=== PATIENT | male | born 1975 | race Hispanic/Latino ===

== ENCOUNTER 2017-01-17 08:40 | Inpatient (IN) | payer BC, OTHER ==
[2017-01-17 08:44] VITALS: BMI 36.2
--- NOTE | 2017-01-17 09:35 | ED PDOC ---
Arrival/HPI <Ramos Kingsley - Last Filed: 01/17/17 18:35> <Octavio Hernandez - Last Filed: 01/19/17 09:28> - General Chief Complaint: Shortness Of Breath Time Seen by Provider: 01/17/17 08:48 - History of Present Illness Narrative History of Present Illness (Text): 41 year old obese with a history of anxiety and depression who presents with dyspnea of 2 hours duration after taking coming out of the shower. He denies chest pain, nausea, diaphoresis, cough, or fever. He admits to increased stress at work and at home, Cocaine use 2 days ago, increased use of his prescribed Klonopin, difficulty sleeping, and non-compliance with his PMD recommedations in regards to his blood pressure monitoring. 01/17/17 09:40 (Ramos Kingsley) Past Medical History - Provider Review Nursing Documentation Reviewed: Yes - Infectious Disease Hx of Infectious Diseases: None - Cardiac Hx Hypertension: Yes (no treatment) - Psychiatric Hx Anxiety: Yes Hx Depression: Yes Hx Substance Use: No <Ramos Kingsley - Last Filed: 01/17/17 18:35> Family/Social History Smoking Status: Current Some Days Smoker Hx Alcohol Use: Yes Hx Substance Use: No <Ramos Kingsley - Last Filed: 01/17/17 18:35> - Physician Review Nursing Documentation Reviewed: Yes Family/Social History: Unknown Family HX <Octavio Hernandez - Last Filed: 01/19/17 09:28> Narrative Family History (Free Text): Father had 2 heart valves replaced 01/17/17 09:47 (Ramos Kingsley) Allergies/Home Meds <Ramos Kingsley - Last Filed: 01/17/17 18:35> <Octavio Hernandez - Last Filed: 01/19/17 09:28> Allergies/Adverse Reactions: Allergies No Known Allergies Allergy (Verified 01/17/17 08:44) Home Medications: Home Meds Medication Instructions Recorded Confirmed Dextroamphetamine/Amphetamine 10 mg PO DAILY 01/17/17 01/17/17 [Adderall 10 mg Tablet] Escitalopram [Lexapro] 20 mg PO DAILY 01/17/17 01/17/17 clonazePAM [Klonopin] 1 mg PO BID 01/17/17 01/17/17 Review of Systems - Review of Systems Constitutional: Weight Change Eyes: Normal. absent: Photophobia ENT: absent: Tinnitus Respiratory: SOB. absent: Cough, Sputum, Wheezing Cardiovascular: absent: Chest Pain, Palpitations, Edema, Calf Pain Gastrointestinal: Normal. absent: Vomiting, Appetite Changes Genitourinary Male: absent: Dysuria, Hematuria Musculoskeletal: absent: Arthralgias, Back Pain Skin: Normal. absent: Rash Neurological: Normal. absent: Headache, Dizziness Endocrine: Normal. absent: Polyuria, Polydipsia Hemo/Lymphatic: absent: Easy Bleeding, Easy Bruising <Sancho,Vadimkatie - Last Filed: 01/17/17 18:35> Physical Exam Temperature: Afebrile Blood Pressure: Hypertensive Pulse: Tachycardic Respiratory Rate: Normal Appearance: Positive for: Non-Toxic Pain Distress: None Mental Status: Positive for: Alert and Oriented X 3 - Systems Exam Head: Present: Atraumatic, Normocephalic Pupils: Present: PERRL Extroacular Muscles: Present: EOMI Conjunctiva: Present: Normal Mouth: Present: Dry Neck: No: JVD, Bruit Respiratory/Chest: Present: Clear to Auscultation, Good Air Exchange Cardiovascular: Present: Normal S1, S2, Tachycardic Abdomen: Present: Normal Bowel Sounds. No: Tenderness, Distention Upper Extremity: Present: Normal Inspection. No: Cyanosis, Edema Lower Extremity: Present: Normal Inspection. No: Edema, CALF TENDERNESS Neurological: Present: CN II-XII Intact, Speech Normal, Motor Func Grossly Intact Psychiatric: Present: Alert, Oriented x 3, Normal Insight <Sancho,Ramos - Last Filed: 01/17/17 18:35> Vital Signs Temp Pulse Resp BP Pulse Ox 01/17/17 17:01 86 150/86 01/17/17 14:47 88 162/108 H 01/17/17 14:00 89 01/17/17 13:34 89 16 98 01/17/17 13:32 89 98 H 140/81 01/17/17 12:15 78 18 150/100 H 95 01/17/17 10:37 82 16 152/108 H 94 L 01/17/17 09:05 18 97 01/17/17 08:41 98.7 F 103 H 20 195/115 H 95 Medical Decision Making <Ramos Kingsley - Last Filed: 01/17/17 18:35> - Lab Interpretations I have reviewed the lab results: Yes - RAD Interpretation Touch Up Painter: Radiologist - EKG Interpretation Interpreted by ED Physician: Yes Type: 12 lead EKG <Octavio Hernandez - Last Filed: 01/19/17 09:28> ED Course and Treatment: 41 year old obese male with a past medical history of anxiety, depression, and general non-compliance who presents with 2 hours of shortness of breath and epigastric discomfort. In the ED he was found to have a blood pressure of 195/ 115 and HR of 103. EKG showed sinus tachycardia, Q-waves in leads III and aVF, poor R-wave progression in the precordial leads, with moderate voltage criteria for LVH (based on lead aVL). Portable Chest X-ray: Nonspecific elevation right diaphragm. No acute infiltrate, pleural effusion or pneumothorax identified. Laboratory tests, including, but not limited to Pro-NT-BNP, troponin I, and D- dimer were non-diagnostic. 01/17/17 11:30 Patient was discussed with Dr. Wong, who agreed to admit the patient for observation. Urine drug screen and serum alcohol also ordered. (Ramos Kingsley) 01/17/17 In agreement with resident note, which includes further HPI details. Patient was seen and evaluated with resident, came up with plan and treatment together. 01/17/17 11:00 Sinus Tachy at [address] elevations, LVH, Q wave in inferior waves, no previous to compare 01/17/17 11:03 Patient with EKG changes. Will consider ACS and place on tele observation. (Octavio Hernandez) - Lab Interpretations Lab Results: 01/18/17 06:10 01/18/17 06:10 Lab Results 01/18/17 06:10: Lactate Dehydrogenase 659, Total Creatine Kinase 135, Troponin I 0.02 D 01/18/17 06:10: Sodium 143, Potassium 4.1, Chloride 106, Carbon Dioxide 27, Anion Gap 14, BUN 14, Creatinine 1.0, Est GFR ( Amer) > 60, Est GFR (Non- Af Amer) > 60, Random Glucose 110, Calcium 8.5, Total Bilirubin 1.2, AST 58, ALT 76 H, Alkaline Phosphatase 76, Total Protein 7.2, Albumin 4.1, Globulin 3.0 , Albumin/Globulin Ratio 1.4 01/18/17 06:10: WBC 6.9 D, RBC 5.06, Hgb 15.4, Hct 44.9, MCV 88.7, MCH 30.4, MCHC 34.3, RDW 13.8, Plt Count 161, MPV 11.5 H, Gran % 58.5, Lymph % (Auto) 30.0 , [place]reys % (Auto) 7.2 H, Eos % (Auto) 3.6, Baso % (Auto) 0.7, Gran # 4.04, Lymph # 2.1, [place] # 0.5, Eos # 0.3, Baso # 0.05 01/17/17 18:20: Lactate Dehydrogenase 459, Total Creatine Kinase 219, Troponin I 0.03 01/17/17 11:58: Urine Opiates Screen Negative, Urine Methadone Screen Negative, Ur Barbiturates Screen Negative, Ur Phencyclidine Scrn Negative, Ur Amphetamines Screen Negative, U Benzodiazepines Scrn Negative, U Oth Cocaine Metabols Positive H, U Cannabinoids Screen Positive H 01/17/17 11:35: Alcohol, Quantitative < 10 01/17/17 09:56: Triglycerides 157, Cholesterol 190, LDL Cholesterol Direct 137 H , HDL Cholesterol 47 01/17/17 09:56: Hepatitis A IgM Ab Negative, Hep Bs Antigen Negative, Hep B Core IgM Ab Negative, Hepatitis C Antibody Negative 01/17/17 09:56: Sodium 144, Potassium 4.4, Chloride 108 H, Carbon Dioxide 24, Anion Gap 16, BUN 16, Creatinine 1.0, Est GFR ( Amer) > 60, Est GFR (Non- Af Amer) > 60, Random Glucose 117 H, Calcium 9.2, Magnesium 2.2, Total Bilirubin 0.6, AST 61 H, ALT 87 H, Alkaline Phosphatase 100, Lactate Dehydrogenase 570, Total Creatine Kinase 198, Troponin I 0.03, NT-Pro-B Natriuret Pep 44.4, Total Protein 7.0, Albumin 4.4, Globulin 2.6, Albumin/ Globulin Ratio 1.7 01/17/17 09:56: PT 10.8, INR 1.00, APTT 32.2 H, D-Dimer, Quantitative 0.19 01/17/17 09:56: WBC 8.8, RBC 4.93, Hgb 15.1, Hct 43.0, MCV 87.2, MCH 30.6, MCHC 35.1, RDW 13.5, Plt Count 178, MPV 11.4 H, Gran % 66.1, Lymph % (Auto) 23.7, Humphreys % (Auto) 8.5 H, Eos % (Auto) 1.5, Baso % (Auto) 0.2, Gran # 5.79, Lymph # 2.1, Humphreys # 0.7 H, Eos # 0.1, Baso # 0.02 - RAD Interpretation Radiology Orders: 01/17/17 09:36 CHEST PORTABLE [RAD] Stat - Medication Orders Current Medication Orders: Atorvastatin Calcium (Lipitor) 20 mg PO DIN [facility] Last Admin: 01/18/17 17:11 Dose: 20 mg Clonidine HCl (Catapres) 0.1 mg PO BID PRN PRN Reason: Systolic Blood Pressure Last Admin: 01/18/17 17:11 Dose: 0.1 mg MAR Pulse and Blood Pressure Document 01/18/17 17:11 BIR (Rec: 01/18/17 17:12 BIR [id number]) Pulse Pulse Rate (60-90) 79 Blood Pressure Blood Pressure (100/60-150/90) 141/103 Escitalopram Oxalate (Lexapro) 20 mg PO DAILY [facility] Last Admin: 01/18/17 09:09 Dose: 20 mg Folic Acid (Folic Acid) 1 mg PO DAILY [facility] Heparin Sodium (Porcine) (Heparin) 5,000 units SC Q8 CHRISTOPHER PRN Reason: Protocol Last Admin: 01/19/17 06:15 Dose: 5,000 units Subcutaneous Administrations Document 01/19/17 06:15 NW (Rec: 01/19/17 06:15 NW [id number]) Charges for Administration # of Subcutaneous Administrations 1 Hydrochlorothiazide (Hydrodiuril) 25 mg PO DAILY CHRISTOPHER Lisinopril (Zestril) 20 mg PO DAILY [facility] Lorazepam (Ativan) 1 mg IVP Q3 PRN; Protocol PRN Reason: Agitation Last Admin: 01/18/17 06:34 Dose: 1 mg IVP Administration Document 01/18/17 06:34 SWE (Rec: 01/18/17 06:34 SWE [id number]) Charges for Administration # of IVP Administrations 1 Behavioural Document 01/18/17 06:34 SWE (Rec: 01/18/17 06:34 SWE [id number]) Maintenance Maintenance Dose Yes Nonmedicinal Nonmedicinal Interventions See nurse's notes Behavior Behavior for Medication: Anxiety Lorazepam (Ativan) 0.5 mg IVP Q4 CHRISTOPHER PRN Reason: Protocol Last Admin: 01/19/17 06:12 Dose: Not Given Non-Admin Reason: Patient Asleep Multivitamins/Minerals (Therapeutic-M Tab) 1 tab PO 0800 CHRISTOPHER Pantoprazole Sodium (Protonix Ec Tab) 40 mg PO DAILY CHRISTOPHER Last Admin: 01/18/17 09:10 Dose: 40 mg Thiamine HCl (Vitamin B1 Tab) 100 mg PO DAILY CHRISTOPHER Discontinued Medications Hydrochlorothiazide (Hydrodiuril) 25 mg PO STAT STA Stop: 01/18/17 12:04 Last Admin: 01/18/17 13:37 Dose: 25 mg Multivitamins/Vitamin C 10 ml/Thiamine HCl 100 mg/ Folic Acid 1 mg/ Sodium Chloride 1,011.2 mls @ 100 mls/hr IV .Q10H7M ONE Stop: 01/17/17 22:49 Last Admin: 01/17/17 13:46 Dose: 100 mls/hr eMAR Start Stop Document 01/17/17 13:46 DIMITRY (Rec: 01/17/17 13:47 [id number]) Intravenous Solution Start Date 01/17/17 Start Time 13:46 End Date 01/18/17 Lisinopril (Zestril) 20 mg PO STAT STA Stop: 01/18/17 12:03 Last Admin: 01/18/17 13:37 Dose: 20 mg MAR Pulse and Blood Pressure Document 01/18/17 13:37 GABRIEL (Rec: 01/18/17 13:38 GABRIEL [id number]) Pulse Pulse Rate (60-90) 72 Blood Pressure Blood Pressure (100/60-150/90) 148/88 Lorazepam (Ativan) 1 mg IVP Q4 CHRISTOPHER PRN Reason: Protocol Last Admin: 01/18/17 13:32 Dose: 1 mg IVP Administration Document 01/18/17 13:32 GABRIEL (Rec: 01/18/17 13:32 [id number] Charges for Administration # of IVP Administrations 1 Behavioural Document 01/18/17 13:32 [facility] (Rec: 01/18/17 13:32 [id number][facility] Maintenance Maintenance Dose Yes Nonmedicinal Nonmedicinal Interventions Redirect Re-Assess: Reassess Psych Meds Document 01/18/17 14:02 [facility] (Rec: 01/18/17 17:09 [id number] Reassess Psych Med Effective Pantoprazole Sodium (Protonix Ec Tab) 40 mg PO 0600,1600 CHRISTOPHER Pneumococcal Polyvalent Vaccine (Pneumovax 23 Vaccine) 0.5 ml IM .ONCE ONE Stop: 01/17/17 18:13 <Ramos Kingsley - Last Filed: 01/17/17 18:35> - PA / CLAM DREDGER / Resident Statement MD/ has reviewed & agrees with the documentation as recorded. MD/DO has examined the patient and agrees with the treatment plan. - Scribe Statement The provider has reviewed the documentation as recorded by the Scribe <Octavio Hernandez - Last Filed: 01/19/17 09:28> - Scribe Statement Roberta Lorenzo Provider Scribe Attestation: All medical record entries made by the Scribe were at my direction and personally dictated by me. I have reviewed the chart and agree that the record accurately reflects my personal performance of the history, physical exam, medical decision making, and the department course for this patient. I have also personally directed, reviewed, and agree with the discharge instructions and disposition. (Octavio Hernandez) Disposition/Present on Arrival - Present on Arrival Any Indicators Present on Arrival: No History of DVT/PE: No History of Uncontrolled Diabetes: No Urinary Catheter: No History of Decub. Ulcer: No History Surgical Site Infection Following: None - Disposition Have Diagnosis and Disposition been Completed?: Yes <Ramos Kingsley - Last Filed: 01/17/17 18:35> - Disposition Disposition Time: 11:02 Patient Plan: Admission <Octavio Hernandez - Last Filed: 01/19/17 09:28> - Disposition Diagnosis: Shortness of breath, Hypertension, EKG abnormalities Disposition: HOSPITALIZED Patient Problems: Current Active Problems Problem Status Onset EKG abnormalities Acute Hypertension Acute Shortness of breath Acute Condition: FAIR
[2017-01-17 10:02] LABS: BASO # 0.02 K/mm3 (0.0-2.0); BASO % 0.2 % (0.0-3.0); EOS # 0.1 (0.0-0.7); EOS % 1.5 % (1.5-5.0); GRAN # 5.79 (1.4-6.5); GRAN % 66.1 % (50.0-68.0); LYMPH # 2.1 (1.2-3.4); LYMPH % 23.7 % (22.0-35.0); MEAN CELL VOLUME 87.2 fl (80.0-105.0); MEAN CORPUSCULAR HEMOGLOBIN 30.6 pg (25.0-35.0); MEAN CORPUSCULAR HGB CONC 35.1 g/dl (31.0-37.0); MEAN PLATELET VOLUME 11.4 fl (7.0-11.0); MONO # 0.7 (0.1-0.6); MONO % 8.5 % (1.0-6.0); RED CELL DISTRIBUTION WIDTH 13.5 % (11.5-14.5); WHITE BLOOD COUNT 8.8 10^3/ul (4.5-11.0)
--- NOTE | 2017-01-17 10:04 | RAD ---
HISTORY: sob COMPARISON: No prior. FINDINGS: LUNGS: There is some elevation the right hemidiaphragm however there is no infiltrate identified bilaterally. PLEURA: No significant pleural effusion identified, no pneumothorax apparent. CARDIOVASCULAR: Normal. OSSEOUS STRUCTURES: No significant abnormalities. VISUALIZED UPPER ABDOMEN: Normal. OTHER FINDINGS: None. IMPRESSION: Nonspecific elevation right diaphragm. No acute infiltrate, pleural effusion or pneumothorax identified.
[2017-01-17 10:13] LABS: ALB/GLOB RATIO 1.7 (1.1-1.8); ALKALINE PHOSPHATASE 100 U/L (38-126); ALT/SGPT 87 U/L (7-56); AST/SGOT 61 U/L (17-59); BILIRUBIN,TOTAL 0.6 mg/dL (0.2-1.3); BLOOD UREA NITROGEN 16 mg/dL (7-21); CALCIUM 9.2 mg/dL (8.4-10.5); CARBON DIOXIDE 24 mmol/L (21-33); CHLORIDE 108 mmol/L (98-107); GFR AFRICAN-AMERICAN > 60; GLUCOSE,RANDOM 117 mg/dL (70-110); MAGNESIUM 2.2 mg/dL (1.7-2.2); POTASSIUM 4.4 mmol/L (3.6-5.0); SODIUM 144 mmol/L (132-148)
[2017-01-17 10:14] LABS: PARTIAL THROMBOPLASTIN TIME 32.2 Seconds (23.7-30.8)
[2017-01-17 10:25] LABS: TROPONIN I 0.03 ng/mL
[2017-01-17 10:38] LABS: D DIMER 0.19 mg/L FEU (0-0.50)
--- NOTE | 2017-01-17 11:35 | CARD ---
APPROVED REPORT EKG Measurement Heart [id number] [id number] <Conclusion> Sinus tachycardia Moderate voltage criteria for LVH, may be normal variant Cannot rule out Inferior infarct, age undetermined Abnormal ECG
[2017-01-17] MEDS ORDERED: Multivitamin (MVI) 10 ML, Thiamine 100 MG, Folic Acid 1 MG in Sodium Chloride 0.9% 1,00... IV ONE (12:43)
--- NOTE | 2017-01-17 13:18 | CP.PCM.HP ---
<Hasmukh Morgan - Last Filed: 01/17/17 21:47> History of Present Illness - History of Present Illness History of Present Illness: This is a 41 year old male with a past medical history of anxiety, depression, and panic attacks who comes into the the emergency department complaining of shortness of breath for approximately two months. The patient reports he's noticed this for awhile, however today he woke up to get ready for work and something just didn't feel right and he decided to come into the emergency department. The patient in conjunction with the shortness of breath has new onset fatigue when climbing up the stairs for the last couple of days. The patient also reports swelling of the lower extremities bilaterally that's been coming and going over the past couple of weeks. The patient denies chest pain, lightheadedness, dizziness, constipation, diarrhea, abdominal pain, headaches, syncopal episodes, dysuria or any other complaints. PMD: Dr. Smith ([place], [place]) Psychiatrist: Dr. Brock ( [place]) PMHx: Anxiety, depression, ?HTN Medications: Lexapro, Aderall, Klonipin Surghx: Denies Allergies: NKDA Socialhx: Current alcohol drinker (suspected alcoholic) and current cocaine abuse (Two days ago last time). Denies smoking history. Denies any other illicit drug use. Present on Admission - Present on Admission Any Indicators Present on Admission: No Review of Systems - Constitutional Constitutional: As Per HPI - EENT Eyes: As Per HPI Ears: As Per HPI Nose/Mouth/Throat: As Per HPI - Cardiovascular Cardiovascular: As Per HPI - Respiratory Respiratory: As Per HPI. absent: Wheezing - Gastrointestinal Gastrointestinal: As Per HPI - Genitourinary Genitourinary: As Per HPI - Integumentary Integumentary: As Per HPI - Neurological Neurological: As Per HPI - Psychiatric Psychiatric: As Per HPI - Endocrine Endocrine: As Per HPI - Hematologic/Lymphatic Hematologic: As Per HPI Past Patient History - Infectious Disease Hx of Infectious Diseases: None - Past Social History Smoking Status: Current Some Days Smoker - CARDIAC Hx Hypertension: Yes (no treatment) - PSYCHIATRIC Hx Anxiety: Yes Hx Depression: Yes Hx Substance Use: No Meds Allergies/Adverse Reactions: Allergies Allergy/AdvReac Type Severity Reaction Status Date / Time No Known Allergies Allergy Verified 01/17/17 08:44 Physical Exam - Head Exam Head Exam: ATRAUMATIC, NORMAL INSPECTION, NORMOCEPHALIC - Eye Exam Eye Exam: EOMI, Normal appearance, PERRL. absent: Periorbital tenderness Pupil Exam: NORMAL ACCOMODATION, PERRL. absent: Irregular - ENT Exam ENT Exam: Mucous Membranes Moist - Neck Exam Neck exam: Positive for: Normal Inspection. Negative for: Lymphadenopathy, Thyromegaly - Respiratory Exam Respiratory Exam: Clear to Auscultation Bilateral, NORMAL BREATHING PATTERN. absent: Accessory Muscle Use, Chest Wall Tenderness, Respiratory Distress - Cardiovascular Exam Cardiovascular Exam: REGULAR RHYTHM, RRR, +S1, +S2. absent: Gallop, JVD, Rubs - GI/Abdominal Exam GI & Abdominal Exam: Normal Bowel Sounds, Soft. absent: Diminished Bowel Sounds , Tenderness - Back Exam Back exam: NORMAL INSPECTION. absent: CVA tenderness (L), CVA tenderness (R), paraspinal tenderness - Neurological Exam Neurological exam: Alert, CN II-XII Intact, Normal Gait, Oriented x3 - Psychiatric Exam Psychiatric exam: Normal Affect, Normal Mood - Skin Skin Exam: Dry, Intact, Normal Color Results - Vital Signs Recent Vital Signs: Last Vital Signs Temp 98.7 F 01/17/17 08:41 Pulse 78 01/17/17 12:15 Resp 18 01/17/17 12:15 BP 150/100 H 01/17/17 12:15 Pulse Ox 95 01/17/17 12:15 - Labs Result Diagrams: 01/17/17 09:56 01/17/17 09:56 Labs: Laboratory Results - last 24 hr 01/17/17 01/17/17 11:35 11:58 Urine Opiates Screen Negative Urine Methadone Screen Negative Ur Barbiturates Screen Negative Ur Phencyclidine Scrn Negative Ur Amphetamines Screen Negative U Benzodiazepines Scrn Negative U Oth Cocaine Metabols Positive H U Cannabinoids Screen Positive H Alcohol, Quantitative < 10 Assessment & Plan - Assessment and Plan (Free Text) Assessment: This is a 41 year old male with a past medical history of anxiety, depression, panic attacks and hypertension who presents with shortness of breath (x 2months) . Plan: 1. Shortness of breath r/o ACS -EKG showed sinus tachycardia, Q-waves in leads III and aVF, poor R-wave progression in the precordial leads, with moderate voltage criteria for LVH ( based on lead aVL). In the ED he was found to have a blood pressure of 195/115 and HR of 103. -Troponin:.04. Order Troponins. Trend. -Pro-BNP 44.4. -Cardio consult ordered. Will f/u with recs tomorrow A.M. -ECHO. Will f/u with recs tomorrow A.M. 2. Etoh abuse/withdrawal -Patient admits to drinking a few can of beers recently, however could be minimizing alcohol intake. -CIWA protocols. -Banana bag. Start Ativan 1 mg Q3PRN and Ativan 1mg Q4SCH. Will monitor closely. 3.Anxiety/panic attacks -Dr. Jade consulted. Will f/u with rec's tomorrow. 4.Cocaine abuse -Counseled patient on cessation of use. Patient seems receptive to change. -Will monitor closely. GI ppx -Protonix DVT ppx -Heparin <Renita Wong - Last Filed: 01/19/17 07:54> Results - Vital Signs Recent Vital Signs: Last Vital Signs Temp 98 F 01/19/17 07:49 Pulse 75 01/19/17 07:49 Resp 20 01/19/17 07:49 BP 135/93 H 01/19/17 07:49 Pulse Ox 97 01/19/17 07:49 - Labs Result Diagrams: 01/19/17 06:10 01/19/17 06:10 Labs: Laboratory Results - last 24 hr 01/19/17 01/19/17 01/19/17 06:10 06:10 06:10 WBC 6.7 RBC 4.90 Hgb 14.8 Hct 43.3 MCV 88.4 MCH 30.2 MCHC 34.2 RDW 13.5 Plt Count 155 MPV 11.2 H Gran % 62.1 Lymph % (Auto) 28.1 [place] % (Auto) 7.0 H Eos % (Auto) 2.4 Baso % (Auto) 0.4 Gran # 4.14 Lymph # 1.9 [place] # 0.5 Eos # 0.2 Baso # 0.03 Sodium 139 Potassium 3.9 Chloride 102 Carbon Dioxide 28 Anion Gap 13 BUN 15 Creatinine 1.0 Est GFR ( Amer) > 60 Est GFR (Non-Af Amer) > 60 Random Glucose 109 Calcium 9.0 Phosphorus 4.0 Magnesium 2.3 H Total Bilirubin 1.2 AST 53 ALT 77 H Alkaline Phosphatase 71 Total Protein 7.0 Albumin 4.1 Globulin 2.8 Albumin/Globulin Ratio 1.5 Triglycerides 237 H Cholesterol 193 LDL Cholesterol Direct 133 H HDL Cholesterol 39 TSH 3rd Generation 1.87 Attending/Attestation - Attestation I have personally seen and examined this patient.: Yes I have fully participated in the care of the patient.: Yes I have reviewed all pertinent clinical information: Yes Notes (Text): 01/17/17 41 year old male with past medical history of anxiety and depression who presented with complaint of chest pain and shortness of breath. Will admit to telemetry unit to rule out ACS. Serial cardiac enzymes and echocardiogram are ordered. Cardiology evaluation is requested. Continue with banana bag and ativan for possible ETOH withdrawal symptoms. Psychiatry evaluation is requested for anxiety and panic attacks. He was counselled on risks of continued substance abuse. is also at bedside and questions were answered. Renita Wong MD Hospitalist.
[2017-01-17] MEDS ORDERED: Pantoprazole 40 mg EC Tab PO SCH (16:00)
[2017-01-17 17:01] LABS: CHOLESTEROL 190 mg/dL (130-200)
[2017-01-17] MEDS ORDERED: Pneumococcal 23-Valent Vaccine IM ONE (18:12)
[2017-01-17 19:00] LABS: TROPONIN I 0.03 ng/mL
[2017-01-18 06:33] LABS: BASO # 0.05 K/mm3 (0.0-2.0); BASO % 0.7 % (0.0-3.0); EOS # 0.3 (0.0-0.7); EOS % 3.6 % (1.5-5.0); GRAN # 4.04 (1.4-6.5); GRAN % 58.5 % (50.0-68.0); HEMATOCRIT 44.9 % (42.0-52.0); LYMPH # 2.1 (1.2-3.4); MEAN CELL VOLUME 88.7 fl (80.0-105.0); MEAN CORPUSCULAR HEMOGLOBIN 30.4 pg (25.0-35.0); MEAN CORPUSCULAR HGB CONC 34.3 g/dl (31.0-37.0); MEAN PLATELET VOLUME 11.5 fl (7.0-11.0); MONO # 0.5 (0.1-0.6); MONO % 7.2 % (1.0-6.0); RED CELL DISTRIBUTION WIDTH 13.8 % (11.5-14.5); WHITE BLOOD COUNT 6.9 10^3/ul (4.5-11.0)
[2017-01-18 06:59] LABS: ALB/GLOB RATIO 1.4 (1.1-1.8); ALKALINE PHOSPHATASE 76 U/L (38-126); ALT/SGPT 76 U/L (7-56); AST/SGOT 58 U/L (17-59); BILIRUBIN,TOTAL 1.2 mg/dL (0.2-1.3); BLOOD UREA NITROGEN 14 mg/dL (7-21); CALCIUM 8.5 mg/dL (8.4-10.5); CARBON DIOXIDE 27 mmol/L (21-33); CHLORIDE 106 mmol/L (98-107); GFR AFRICAN-AMERICAN > 60; GLUCOSE,RANDOM 110 mg/dL (70-110); POTASSIUM 4.1 mmol/L (3.6-5.0); SODIUM 143 mmol/L (132-148); TOTAL PROTEIN 7.2 g/dL (5.8-8.3)
[2017-01-18 09:01] LABS: TROPONIN I 0.02 ng/mL
[2017-01-18] MEDS: Pantoprazole 40 mg EC Tab PO SCH (09:10)
--- NOTE | 2017-01-18 11:39 | CP.PCM.PCO ---
Physician Communication Note - Physician Communication Note Physician Communication Note: pt is at ECHO, d/w RN pt is not in acute distress , no SI/HI,not psychotic
--- NOTE | 2017-01-18 14:17 | CP.PCM.PN ---
<Hasmukh Morgan - Last Filed: 01/18/17 19:13> Subjective - Date & Time of Evaluation Date of Evaluation: 01/18/17 Time of Evaluation: 09:15 - Subjective Subjective: Patient was seen and examined at bedside this morning. The patient reports some mild right lower quadrant pain. The patient denies any chest pain, shortness of breath, nausea, vomiting, changes in vision, headaches, lightheadedness, dizziness, palpitations, or any other complaints. Objective - Vital Signs/Intake and Output Vital Signs (last 24 hours): Temp Pulse Resp BP Pulse Ox 98 F 72 20 148/88 95 01/18/17 08:38 01/18/17 13:37 01/18/17 08:38 01/18/17 13:37 01/18/17 08:38 Intake and Output: 01/18/17 01/18/17 06:59 18:59 Intake Total 2020 Output Total 600 Balance 1420 - Medications Medications: Current Medications Clonidine HCl (Catapres) 0.1 mg PO BID PRN PRN Reason: Systolic Blood Pressure Last Admin: 01/18/17 06:30 Dose: 0.1 mg Escitalopram Oxalate (Lexapro) 20 mg PO DAILY [facility] Last Admin: 01/18/17 09:09 Dose: 20 mg Heparin Sodium (Porcine) (Heparin) 5,000 units SC Q8 [facility] PRN Reason: Protocol Last Admin: 01/18/17 13:34 Dose: 5,000 units Hydrochlorothiazide (Hydrodiuril) 25 mg PO DAILY [facility] Lisinopril (Zestril) 20 mg PO DAILY [facility] Lorazepam (Ativan) 1 mg IVP Q3 PRN; Protocol PRN Reason: Agitation Last Admin: 01/18/17 06:34 Dose: 1 mg Lorazepam (Ativan) 1 mg IVP Q4 [facility] PRN Reason: Protocol Last Admin: 01/18/17 13:32 Dose: 1 mg Pantoprazole Sodium (Protonix Ec Tab) 40 mg PO DAILY [facility] Last Admin: 01/18/17 09:10 Dose: 40 mg - Labs Labs: 01/18/17 06:10 01/18/17 06:10 PT 10.8 Seconds (9.9-11.8) 01/17/17 09:56 INR 1.00 (0.93-1.08) 01/17/17 09:56 APTT 32.2 Seconds (23.7-30.8) H 01/17/17 09:56 - Head Exam Head Exam: ATRAUMATIC, NORMAL INSPECTION, NORMOCEPHALIC - Eye Exam Eye Exam: EOMI, Normal appearance, PERRL. absent: Conjunctival injection, Periorbital tenderness Pupil Exam: NORMAL ACCOMODATION, PERRL. absent: Irregular, Unequal - ENT Exam ENT Exam: Mucous Membranes Moist. absent: Normal Oropharynx - Neck Exam Neck Exam: Full ROM, Normal Inspection. absent: Lymphadenopathy, Thyromegaly - Respiratory Exam Respiratory Exam: Clear to Ausculation Bilateral, NORMAL BREATHING PATTERN. absent: Accessory Muscle Use, Chest Wall Tenderness, Respiratory Distress - Cardiovascular Exam Cardiovascular Exam: REGULAR RHYTHM, RRR, +S1, +S2. absent: Gallop, Rubs - GI/Abdominal Exam GI & Abdominal Exam: Soft, Tenderness, Normal Bowel Sounds. absent: Rigid Additional comments: right lower quadrant - Back Exam Back Exam: NORMAL INSPECTION. absent: CVA tenderness (L), CVA tenderness (R), paraspinal tenderness - Neurological Exam Neurological Exam: Alert, Awake, CN II-XII Intact, Normal Gait, Oriented x3 - Psychiatric Exam Psychiatric exam: Normal Affect, Normal Mood - Skin Skin Exam: Dry, Intact, Normal Color Assessment and Plan - Assessment and Plan (Free Text) Assessment: This is a 41 year old male with a past medical history of anxiety, depression, panic attacks and hypertension who presents with shortness of breath (x 2months) . Plan: 1. Shortness of breath r/o ACS -EKG showed sinus tachycardia, Q-waves in leads III and aVF, poor R-wave progression in the precordial leads, with moderate voltage criteria for LVH ( based on lead aVL). In the ED he was found to have a blood pressure of 195/115 and HR of 103. -Troponin(-)x3. Echo reading pending. -Pro-BNP 44.4. -Stress test scheduled for tomorrow per Cardiology. Will f/u with rec's tomorrow. 2. Etoh abuse/withdrawal -Patient admits to drinking a few can of beers recently, however could be minimizing alcohol intake. -CIWA protocols. -Continue Banana bag. Start Ativan 1 mg Q3PRN and Ativan 1mg Q4SCH. Will monitor closely. 3.Anxiety/panic attacks -Dr. Jade consulted. Will f/u with rec's tomorrow. 4.Cocaine abuse -Counseled patient on cessation of use. Patient seems receptive to change. -Will monitor closely. GI ppx -Protonix DVT ppx -Heparin <Renita Wong - Last Filed: 01/19/17 07:56> Objective - Vital Signs/Intake and Output Vital Signs (last 24 hours): Temp Pulse Resp BP Pulse Ox 98 F 75 20 135/93 H 97 01/19/17 07:49 01/19/17 07:49 01/19/17 07:49 01/19/17 07:49 01/19/17 07:49 Intake and Output: 01/19/17 01/19/17 06:59 18:59 Intake Total 800 480 Output Total 2 Balance 798 480 - Medications Medications: Current Medications Atorvastatin Calcium (Lipitor) 20 mg PO DIN [facility] Last Admin: 01/18/17 17:11 Dose: 20 mg Clonidine HCl (Catapres) 0.1 mg PO BID PRN PRN Reason: Systolic Blood Pressure Last Admin: 01/18/17 17:11 Dose: 0.1 mg Escitalopram Oxalate (Lexapro) 20 mg PO DAILY [facility] Last Admin: 01/18/17 09:09 Dose: 20 mg Heparin Sodium (Porcine) (Heparin) 5,000 units SC Q8 [facility] PRN Reason: Protocol Last Admin: 01/19/17 06:15 Dose: 5,000 units Hydrochlorothiazide (Hydrodiuril) 25 mg PO DAILY [facility] Lisinopril (Zestril) 20 mg PO DAILY [facility] Lorazepam (Ativan) 1 mg IVP Q3 PRN; Protocol PRN Reason: Agitation Last Admin: 01/18/17 06:34 Dose: 1 mg Lorazepam (Ativan) 0.5 mg IVP Q4 [facility] PRN Reason: Protocol Last Admin: 01/19/17 06:12 Dose: Not Given Pantoprazole Sodium (Protonix Ec Tab) 40 mg PO DAILY [facility] Last Admin: 01/18/17 09:10 Dose: 40 mg - Labs Labs: 01/19/17 06:10 01/19/17 06:10 PT 10.8 Seconds (9.9-11.8) 01/17/17 09:56 INR 1.00 (0.93-1.08) 01/17/17 09:56 APTT 32.2 Seconds (23.7-30.8) H 01/17/17 09:56 Attending/Attestation - Attestation I have personally seen and examined this patient.: Yes I have fully participated in the care of the patient.: Yes I have reviewed all pertinent clinical information, including history, physical exam and plan: Yes Notes (Text): 01/18/17 41 year old male with past medical history of anxiety and depression who presented with complaint of chest pain and shortness of breath. Serial cardiac enzymes are so far negative. Echocardiogram was done with report pending. Cardiology evaluation was appreciated. Plan is for stress test tomorrow. Continue with banana bag and ativan taper for ETOH withdrawal symptoms. Psychiatry evaluation is pending for anxiety and panic attacks. He was counselled on risks of continued substance abuse and on alcohol cessation. is also at bedside and questions were answered. Renita Wong MD Hospitalist.
[2017-01-19 06:42] LABS: BASO # 0.03 K/mm3 (0.0-2.0); BASO % 0.4 % (0.0-3.0); EOS # 0.2 (0.0-0.7); EOS % 2.4 % (1.5-5.0); GRAN # 4.14 (1.4-6.5); GRAN % 62.1 % (50.0-68.0); HEMATOCRIT 43.3 % (42.0-52.0); LYMPH # 1.9 (1.2-3.4); LYMPH % 28.1 % (22.0-35.0); MEAN CELL VOLUME 88.4 fl (80.0-105.0); MEAN CORPUSCULAR HEMOGLOBIN 30.2 pg (25.0-35.0); MEAN CORPUSCULAR HGB CONC 34.2 g/dl (31.0-37.0); MEAN PLATELET VOLUME 11.2 fl (7.0-11.0); MONO # 0.5 (0.1-0.6); RED CELL DISTRIBUTION WIDTH 13.5 % (11.5-14.5); WHITE BLOOD COUNT 6.7 10^3/ul (4.5-11.0)
[2017-01-19 07:03] LABS: ALB/GLOB RATIO 1.5 (1.1-1.8); ALKALINE PHOSPHATASE 71 U/L (38-126); ALT/SGPT 77 U/L (7-56); AST/SGOT 53 U/L (17-59); BILIRUBIN,TOTAL 1.2 mg/dL (0.2-1.3); BLOOD UREA NITROGEN 15 mg/dL (7-21); CARBON DIOXIDE 28 mmol/L (21-33); CHLORIDE 102 mmol/L (98-107); CHOLESTEROL 193 mg/dL (130-200); GFR AFRICAN-AMERICAN > 60; GLUCOSE,RANDOM 109 mg/dL (70-110); MAGNESIUM 2.3 mg/dL (1.7-2.2); POTASSIUM 3.9 mmol/L (3.6-5.0); SODIUM 139 mmol/L (132-148)
[2017-01-19 07:30] VITALS: RESP 20; O2SAT 97
[2017-01-19 07:49] VITALS: TEMP 98
[2017-01-19] MEDS ORDERED: Multivitamin With Minerals Tab PO SCH (08:00)
--- NOTE | 2017-01-19 08:04 | CARD ---
APPROVED REPORT EXAM: Two-dimensional and M-mode echocardiogram with Doppler and color Doppler. Other Information Quality : FairRhythm : INDICATION Dyspnea 2D DIMENSIONS Left Atrium (2D)3.6 (1.6-4.0cm)IVSd1.2 (0.7-1.1cm) LVDd5.6 (3.9-5.9cm)PWd1.2 (0.7-1.1cm) LVDs4.4 (2.5-4.0cm)FS (%) 20.2 % LVEF (%)43.0 (>50%) M-Mode DIMENSIONS Aortic Root4.20 (2.2-3.7cm)Aortic Cusp Exc.2.30 (1.5-2.0cm) Aortic Valve AoV Peak Bdajshvy88.4cm/s Mitral Valve MV E Ofgpbxrl42.8cm/sMV A Sexxgquf87.7cm/sE/A ratio0.6 TDI Lateral E' Peak V5.17cm/sMedial E' Peak V5.46cm/sE/Lateral E'7.3 E/Medial E'6.9 Pulmonary Valve PV Peak Acpvndyo39.1cm/sPV Peak Grad.2mmHg Tricuspid Valve TR Peak Arselcun188nr/sRAP [id number] Peak Gr.15mmHg [id number] LEFT VENTRICLE The left ventricle is normal size. There is normal left ventricular wall thickness. Left ventricle systolic function is mildly impaired. The Ejection Fraction is 40-45%. There is mild global hypokinesis. RIGHT VENTRICLE The right ventricle is normal size. ATRIA The left atrium size is normal. The right atrium size is normal. The interatrial septum is intact with no evidence for an atrial septal defect. AORTIC VALVE The aortic valve is normal in structure. MITRAL VALVE The mitral valve is normal in structure. Mitral regurgitation is trace. TRICUSPID VALVE The tricuspid valve is normal in structure. There is trace tricuspid regurgitation. PULMONIC VALVE The pulmonary valve is normal in structure. There is mild pulmonic valvular regurgitation. GREAT VESSELS The aortic root is normal in size. PERICARDIAL EFFUSION There is no pericardial effusion. <Conclusion> The left ventricle is normal size. There is normal left ventricular wall thickness. Left ventricle systolic function is mildly impaired. The Ejection Fraction is 40-45%. There is mild global hypokinesis.
[2017-01-19 10:42] VITALS: PULSE 58
--- NOTE | 2017-01-19 13:06 | PN ---
DATE: 01/19/2017 LOCATION: The patient in room 369, bed 1. REASON FOR CONSULTATION: Shortness of breath, chest discomfort, hypertension. SUBJECTIVE: The patient sitting comfortably in bed without any chest pain, shortness of breath, or palpitation. PHYSICAL EXAMINATION: VITAL SIGNS: Blood pressure 135/93, respirations 20, pulse 75, and temperature 98. HEENT: Head is normocephalic. Eyes; pupils are normal. Conjunctivae normal. Nose and throat normal. NECK: JVP low. Carotid equal. THORAX: AP diameter normal. LUNGS: Clear. CARDIOVASCULAR: S1 and S2. ABDOMEN: Protuberant. No organomegaly. PERIPHERY: No clubbing. No cyanosis. LABORATORY DATA: WBC 6.7, hemoglobin 14.8, hematocrit 43.3, platelet 155. Sodium 139, potassium 3.9, BUN 15, creatinine 1.0, calcium 9.0, phosphorus 4.0. AST 53, ALT 77, sugar 109, TSH 1.87, triglycerides 237, cholesterol 193, LDL 133, HDL 39. Troponin negative. DIAGNOSES: Shortness of breath, atypical chest pain, hypertension, obesity, history of depression, anxiety, history of alcohol drinking. PLAN: The patient will have stress test today. The patient had echocardiogram yesterday, which showed the left ventricle normal size, normal left ventricle wall thickness, left ventricle systolic function mildly impaired with LV ejection fraction of 40% to 45%, mild global hypokinesis. The patient is on lisinopril 20 daily, Lipitor 20 daily, hydrochlorothiazide 25 daily, heparin 5000 units subQ q. 8 hours, folic acid 1 mg daily. Advice the patient to lose weight and stop drinking. We will have a stress test today and we will follow the finding on the stress test and give further recommendation. We will follow up with you. Roberto Ahn MD
[2017-01-19] MEDS: Pantoprazole 40 mg EC Tab PO SCH (13:31)
[2017-01-19 13:34] VITALS: BP 141/72
--- NOTE | 2017-01-19 15:47 | CON ---
DATE: 01/18/2017 REFERRING PHYSICIAN: . REASON FOR CONSULTATION: Followup of shortness of breath and chest pain. 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 Recently gained some weight of 50 to 60 pounds in over a year. is at the bedside and states that the patient has hyperlipidemia, being followed by the [facility], who suggested probably anticholesterol medication, but the patient has never been filled the prescription. Also, history of seen in the [facility], Dr. Elizondo. The patient complained of dyspnea on exertion, climbing one flight up and get very short winded with dyspnea on exertion, but no definite chest pain. PAST MEDICAL HISTORY: Significant for anxiety disorder, depression, hypertension borderline and panic attack. FAMILY HISTORY: Significant for coronary artery disease. SOCIAL HISTORY: Denies any history of smoking, but used to drink 3 to 4 cans, 5 days a week, 12 ounce can of beer. Also history of substance abuse and smokes pot. REVIEW OF SYSTEMS: As per HPI. PHYSICAL EXAMINATION: VITAL SIGNS: Temperature afebrile, heart rate 72 and blood pressure 148/88. HEENT: PERRLA. Extraocular muscles intact. NECK: Supple. No carotid bruit and no thyromegaly. CHEST: Clear to auscultation. HEART: S1 and S2, regular. ABDOMEN: Soft. EXTREMITIES: Clubbing and cyanosis negative. LABORATORY DATA: Blood workup as follows: WBC 6.8, hemoglobin 15.4, hematocrit 44.9 and platelet count 161. Chemistry shows sodium 143, potassium 4.1, chloride 106, carbon dioxide 27, anion gap of 14, BUN 14, creatinine 1.0. Troponin 0.02, 0.03 and 0.2. IMPRESSION: Morbid obesity, diabetes, hypertension, hyperlipidemia, multiple risk factors for coronary artery disease, history of substance abuse, history of tobacco abuse, needs to rule out coronary artery disease. We will get echocardiogram to assess left ventricular function, lipid profile, TSH, hemoglobin A1c and a stress test in the morning. Further recommendation depending upon the hospital course. Discussed with the patient, discussed with the . We will keep n.p.o. after 12:00 midnight for a stress test in the morning. Interim, we will add on hydrochlorothiazide 25 mg daily, lisinopril 20 mg daily, and depending upon the lipid profile, we will add on atorvastatin 20 mg and follow the lipid profile. We will follow with you. Thank you for providing the opportunity to taking care of the patient, Benja Nath. Roberto Jarquin MD
--- NOTE | 2017-01-19 17:03 | CP.PCM.DIS ---
Provider - Provider Date of Admission: 01/18/17 16:48 Attending physician: Renita Wong MD Primary care physician: Elizabeth Smith MD Time Spent in preparation of Discharge (in minutes): 45 Hospital Course - Lab Results Lab Results: Most Recent Lab Values WBC 6.7 10^3/ul (4.5-11.0) 01/19/17 06:10 RBC 4.90 10^6/uL (3.5-6.1) 01/19/17 06:10 Hgb 14.8 g/dL (14.0-18.0) 01/19/17 06:10 Hct 43.3 % (42.0-52.0) 01/19/17 06:10 MCV 88.4 fl (80.0-105.0) 01/19/17 06:10 MCH 30.2 pg (25.0-35.0) 01/19/17 06:10 MCHC 34.2 g/dl (31.0-37.0) 01/19/17 06:10 RDW 13.5 % (11.5-14.5) 01/19/17 06:10 Plt Count 155 10^3/uL (120.0-450.0) 01/19/17 06:10 MPV 11.2 fl (7.0-11.0) H 01/19/17 06:10 Gran % 62.1 % (50.0-68.0) 01/19/17 06:10 Lymph % (Auto) 28.1 % (22.0-35.0) 01/19/17 06:10 [place] % (Auto) 7.0 % (1.0-6.0) H 01/19/17 06:10 Eos % (Auto) 2.4 % (1.5-5.0) 01/19/17 06:10 Baso % (Auto) 0.4 % (0.0-3.0) 01/19/17 06:10 Gran # 4.14 (1.4-6.5) 01/19/17 06:10 Lymph # 1.9 (1.2-3.4) 01/19/17 06:10 [place] # 0.5 (0.1-0.6) 01/19/17 06:10 Eos # 0.2 (0.0-0.7) 01/19/17 06:10 Baso # 0.03 K/mm3 (0.0-2.0) 01/19/17 06:10 PT 10.8 Seconds (9.9-11.8) 01/17/17 09:56 INR 1.00 (0.93-1.08) 01/17/17 09:56 APTT 32.2 Seconds (23.7-30.8) H 01/17/17 09:56 D-Dimer, Quantitative 0.19 mg/L FEU (0-0.50) 01/17/17 09:56 Sodium 139 mmol/L (132-148) 01/19/17 06:10 Potassium 3.9 mmol/L (3.6-5.0) 01/19/17 06:10 Chloride 102 mmol/L (98-107) 01/19/17 06:10 Carbon Dioxide 28 mmol/L (21-33) 01/19/17 06:10 Anion Gap 13 (10-20) 01/19/17 06:10 BUN 15 mg/dL (7-21) 01/19/17 06:10 Creatinine 1.0 mg/dL (0.5-1.4) 01/19/17 06:10 Est GFR ( Amer) > 60 01/19/17 06:10 Est GFR (Non-Af Amer) > 60 01/19/17 06:10 Random Glucose 109 mg/dL (70-110) 01/19/17 06:10 Hemoglobin A1c 5.4 % (4.2-6.5) 01/19/17 06:10 Calcium 9.0 mg/dL (8.4-10.5) 01/19/17 06:10 Phosphorus 4.0 mg/dL (2.5-4.5) 01/19/17 06:10 Magnesium 2.3 mg/dL (1.7-2.2) H 01/19/17 06:10 Total Bilirubin 1.2 mg/dL (0.2-1.3) 01/19/17 06:10 AST 53 U/L (17-59) 01/19/17 06:10 ALT 77 U/L (7-56) H 01/19/17 06:10 Alkaline Phosphatase 71 U/L (38-126) 01/19/17 06:10 Lactate Dehydrogenase 659 U/L (333-699) 01/18/17 06:10 Total Creatine Kinase 135 U/L (35-230) 01/18/17 06:10 Troponin I 0.02 ng/mL D 01/18/17 06:10 NT-Pro-B Natriuret Pep 44.4 pg/mL (0-450) 01/17/17 09:56 Total Protein 7.0 g/dL (5.8-8.3) 01/19/17 06:10 Albumin 4.1 g/dL (3.0-4.8) 01/19/17 06:10 Globulin 2.8 gm/dL 01/19/17 06:10 Albumin/Globulin Ratio 1.5 (1.1-1.8) 01/19/17 06:10 Triglycerides 237 mg/dL (35-160) H 01/19/17 06:10 Cholesterol 193 mg/dL (130-200) 01/19/17 06:10 LDL Cholesterol Direct 133 mg/dL (0-129) H 01/19/17 06:10 HDL Cholesterol 39 mg/dL (29-60) 01/19/17 06:10 TSH 3rd Generation 1.87 mIU/mL (0.46-4.68) 01/19/17 06:10 Urine Opiates Screen Negative (NEGATIVE) 01/17/17 11:58 Urine Methadone Screen Negative (NEGATIVE) 01/17/17 11:58 Ur Barbiturates Screen Negative (NEGATIVE) 01/17/17 11:58 Ur Phencyclidine Scrn Negative (NEGATIVE) 01/17/17 11:58 Ur Amphetamines Screen Negative (NEGATIVE) 01/17/17 11:58 U Benzodiazepines Scrn Negative (NEGATIVE) 01/17/17 11:58 U Oth Cocaine Metabols Positive (NEGATIVE) H 01/17/17 11:58 U Cannabinoids Screen Positive (NEGATIVE) H 01/17/17 11:58 Alcohol, Quantitative < 10 mg/dL (0-10) 01/17/17 11:35 Hepatitis A IgM Ab Negative (NEGATIVE) 01/17/17 09:56 Hep Bs Antigen Negative (NEGATIVE) 01/17/17 09:56 Hep B Core IgM Ab Negative (NEGATIVE) 01/17/17 09:56 Hepatitis C Antibody Negative (NEGATIVE) 01/17/17 09:56 - Hospital Course Hospital Course: This is a 41 year old male with the past medical history of anxiety, depression, (?hypertension), who comes in complaining of shortness of breath for 2 months and dyspnea upon walking up the stairs. Patient woke up today and didn't feel well and decided to come into the emergency department to get examined. The patient reports bilateral lower extremity swelling that comes and goes also. The patient also reports some lightheadedness in conjunction with the initial presenting complaint. The patient denies any changes in vision, headaches, or any other complaints. The patient was seen by Cardiology and Psychiatry while admitted in the hospital. The [facility] recommended a Echo test and a cardiac stress test while admitted. Patient was seen by Dr. Jade and it was recommended by her to be admitted to the voluntary Psychiatric unit for further management of his substance abuse and anxiety problems. The patient agreed and was discharged to the Psychiatric unit for further management and assessment. Discharge Exam - Head Exam Head Exam: ATRAUMATIC, NORMAL INSPECTION, NORMOCEPHALIC - Eye Exam Eye Exam: EOMI, Normal appearance, PERRL. absent: Periorbital tenderness Pupil Exam: NORMAL ACCOMODATION, PERRL. absent: Irregular, Unequal - ENT Exam ENT Exam: Mucous Membranes Moist - Neck Exam Neck exam: Normal Inspection - Respiratory Exam Respiratory Exam: Clear to PA & Lateral, NORMAL BREATHING PATTERN, UNREMARKABLE. absent: Accessory Muscle Use, Respiratory Distress - Cardiovascular Exam Cardiovascular Exam: REGULAR RHYTHM, RRR, +S1, +S2. absent: Gallop, Rubs - GI/Abdominal Exam GI & Abdominal Exam: Normal Bowel Sounds, Unremarkable. absent: Hypoactive Bowel Sounds, Organomegaly - Extremities Exam Extremities exam: full ROM - Back Exam Back exam: NORMAL INSPECTION, paraspinal tenderness. absent: CVA tenderness (L) , CVA tenderness (R) - Neurological Exam Neurological exam: Alert, CN II-XII Intact, Normal Gait, Oriented x3 - Psychiatric Exam Psychiatric exam: Normal Affect, Normal Mood - Skin Skin Exam: Dry, Intact Discharge Plan - Follow Up Plan Condition: FAIR Disposition: DISCHARGE TO PSYCH HOSPITAL Instructions: Chest Pain (DC), Hypertension (DC) Additional Instructions: Patient discharged to Voluntary Psych unit for further management. Patient advised to follow up with PMD and establish care with a Psychiatrist. Patient should return to emergency department for any new or worsening symptoms. Referrals: Elizabeth Smith MD [Primary Care Provider] -
--- NOTE | 2017-01-19 21:51 | CON ---
DATE: HISTORY OF PRESENT ILLNESS: The patient is a 41-year-old male with not known previous psychiatry history. He self-reports a history of anxiety and depression. The patient was admitted on the medical side for evaluation of shortness of breath. Psychiatric consult was called for evaluation of mood spectrum disorder and anxiety. The patient was seen and examined today. The patient presented to be alert, overall pleasant and cooperative. The patient states that he was on Lexapro, Klonopin, and Adderall by psychiatrist in [place]. The patient said that he was not able to afford to see a psychiatrist anymore. Last time he saw a psychiatrist was about 15 months ago. The patient reports that he has a history of depression and at the present moment he feels depressed, hopeless and helpless. The patient also reported difficulty to stay focused and concentrate. The patient also reported that his mood symptoms are related to the job performance. At the same time, the patient reported that he has difficulty to fall asleep, to stay asleep, history of risk-taking behavior as well as irritability, angry outbursts. The patient reports that he is dealing with this stress with alcohol and marijuana as well as cocaine. The patient acknowledged that his addiction to alcohol is interfering with his job performance too. The patient said that he does not hear any voices, he does not see anything unusual, he does not feel paranoid. The patient reported that he has no history of mental illness. He does have a history of suicidal attempt. FAMILY HISTORY: Significant for mood spectrum disorder on his father's side as well as mother's side has history of anxiety spectrum disorder. PHYSICAL EXAMINATION VITAL SIGNS: Reviewed, temperature 98, pulse is 58, blood pressure is 135/93, respirations 20, and oxygen saturation is 97%. MEDICATIONS: Reviewed, Lipitor, Catapres, Lexapro ____ mg daily, folic acid, heparin, lisinopril, lorazepam 1 mg IV push q. 3 hours p.r.n., Ativan 0.5 mg IV push q. 4 hours scheduled, multivitamins, Protonix, and vitamin D1. LABORATORY DATA: Reviewed, seems to be within normal limits. Toxicology was positive for cocaine and cannabis, serology is negative for hepatitis. MENTAL STATUS EXAMINATION: The patient presented to be depressed, flat affect, poor personal hygiene, obese, related to this card writer hand, intermittent eye contact. The patient was underproductive. Mood descried as depressed and "all over the place." Affect was constricted, more congruent. Thought process seems to be coherent and goal directed. Thought content, the patient denied visual, auditory, or tactile hallucination. Denied paranoid ideation. The patient does not present to be psychotic. The patient denied thoughts of harming himself or others. Denied intents or plan. Insight and judgment are limited. Impulses are well controlled. IMPRESSION: Rule out bipolar spectrum disorder, rule out mood disorder due to general medical condition, rule out major depressive disorder, generalized anxiety disorder, adjustment disorder. The patient has multiple medical issues. Please see notes for more detailed information. PLAN: Continue current management. This card writer hand offered the patient admission to the psychiatric inpatient unit and the patient wants to discuss that option with his . Meanwhile, the patient might benefit from adjustment of the medication. No stimulants need to be prescribed for the patient as it was noted that the patient might do well on Wellbutrin as well as mood stabilizer/his Abilify. The case was discussed with Dr. Wong. The patient posed no threat to self or others, but benefits from psychiatric inpatient admission, to the voluntary unit and the patient gets back to this card writer hand with his final decision. Thank you very much for letting me participate in the care of your patient. Kalie Sanchez MD
--- NOTE | 2017-01-19 22:00 | CARD ---
APPROVED REPORT Protocol: JOSAFAT Test Type: Sestamibi Stress Test Attending Physician: Dr. Roberto Ahn Referring Physician: Dr. Renita Wong Test Indications: Chest Pain Height:5 ft 11 in Weight:260lbs Medications: Lipitor, Catapres, Lexapro, Heparin, HCTZ, Zestril, Ativan, Protonix Medical History: 41 y/o male with a history of htn, lower leg edema, anxiety, depression, ETOH & cocaine use Target HR: 181 bpm Resting ECG: RSR. Resting Heart Rate: 81 bpm Resting Blood Pressure: 130/100mmHg Submaximum (85%): 154 bpm POST EXERCISE Reason for Termination: Fatigue and Shortness of Breath. Target HR: No Max HR: 164 bpm 90% of Maximum Predicted HR: 181 bpm Exercise duration: 09:28 min:sec, 4 Stage Exercise capacity: 10.8METs Max Blood Pressure: 186/70mmHg Blood Pressure response to exercise: resting hypertension - appropriate response Heart Rate response to exercise: appropriate Chest Pain: No, none Angina index: 0 Arrhythmia: No, none ST Change: No, none Deviation: 0 mm TEST SUMMARY [id number]/.0. [id number]/100.0. PRETESTHYPERV.00:[id number]/100.0. PRETESTWARM-[id number]/100.0. EXERCISESTAGE 103:[id number]/100.0. EXERCISESTAGE 203:[id number]/100.0. EXERCISESTAGE 303:[id number]/100.0. EXERCISESTAGE 400:[id number]/.2. [id number]/80.0. INTERPRETATION Stress EKG Conclusion: MYOVIEW NUCLEAR STRESS TEST STOPPED AFTER 9 MINUTES AND 28 SECONDS OF JOSAFAT PROTOCOL DUE TO FATIGUE. PATIENT ACHIEVED 85% OF PREDICTED HEART RATE. NO CHEST PAIN. NO ST-T CHANGES. NUCLEAR SCAN REPORT PENDING. Signed by Roberto Ahn Electronically Approved: 01/19/2017 12:13:15 EXAM: Myocardial Perfusion REST/STRESS Stress Test Type: Exercise Treadmill Imaging Protocol Rest Spect myocardial perfusion imaging was performed in supine position 45 minutes following the injection of 10.5 mCi of Tc-99 Myoview. At peak stress, the patient was injected intravenously with 30.7mCi of Tc-99 tetrofosmin after an exercise time of 9 minutes and 28 seconds. Gated Stress Spect was performed 80 minutes after intravenous Tc-99 Myoview injection. The images were gated to evaluate regional wall motion and calculate ventricular ejection fraction.Images were reconstructed using backfilter projection method in short horizontal and verticle long axis. Spect slices were generated. LV Perfusion The quality of the study is good. The left ventricle is moderately enlarged with thickened myocardium. The right ventricle is unremarkable. The lung uptake is normal. The distribution of tracer reveals mildly to moderately decreased perfusion in the inferior wall on the stress study. The remainder of the LV myocardium is unremarkable. The rest myocardial perfusion study shows no significant change. Wall Motion Wall motion study shows good contractility of the left ventricle. LVEF = 52%. Conclusion 1. Essentially normal SPECT myocardial perfusion study. 2. Fixed, inferior defect is most likely due to diaphrgmatic attenuation. 3. Normal gated wall motion and thicknening of the left ventricle. 4. LVH.
== END 2017-01-19 18:57 | DRG 143 ==
LOC: ED 08:40 → ERH 11:00 → 3RNO 17:13 → OBSVTOIN 01-18 16:48
PROVIDERS: ADMIT Internal Medicine; ATTEND Internal Medicine
DX: R07.89 Other chest pain (principal); F10.239 Alcohol dependence with withdrawal, unspecified; E66.01 Morbid (severe) obesity due to excess calories; I10 Essential (primary) hypertension; F14.10 Cocaine abuse, uncomplicated; F41.0 Panic disorder [episodic paroxysmal anxiety]; E78.5 Hyperlipidemia, unspecified; F32.9 Major depressive disorder, single episode, unspecified; F41.1 Generalized anxiety disorder; G47.30 Sleep apnea, unspecified; Z68.36 Body mass index [BMI] 36.0-36.9, adult

== ENCOUNTER 2017-01-19 18:50 | Inpatient (IN) | payer OTHER ==
[2017-01-19] MEDS ORDERED: Alum-Mag Hydrox-Simethicone Susp (30 mL) PO PRN (20:01)
[2017-01-19] MEDS ORDERED: Magnesium Hydroxide Susp 30 ml UD PO PRN (20:01)
--- NOTE | 2017-01-19 23:19 | PCM.BM ---
Treatment Plan Problems - Problems identified on initial assessmt Anxiety Date Initiated: 01/19/17 Time Initiated: 23:16 Assessment reference: NA Status: Active Ineffective Coping Date Initiated: 01/19/17 Time Initiated: 23:17 Assessment reference: NA Status: Active Hopelessness/Helplessness Date Initiated: 01/19/17 Time Initiated: 23:17 Assessment reference: NA Status: Active Feelings of Worthlessness Date Initiated: 01/19/17 Time Initiated: 23:17 Assessment reference: NA Status: Active Knowledge Deficit: Alcohol Date Initiated: 01/19/17 Time Initiated: 23:18 Assessment reference: NA Status: Active Treatment assets and liabiliti Patient Assests: cooperative, educated, resourceful, ADL independent, financial stabiity, cognitively intact Patient Liabilities: poor support system, relationship conflicts, substance abuse, medical problems - Milieu Protocol Maintain good personal hygiene: daily Encourage regular showers, daily Remind patient to perform daily oral care, daily Assist patient to perform ADL's Maintain personal safety: every shift Educate patient to report safety concerns to staff, every shift Monitor environment for contraband/sharps Medication safety: Monitor for expected outcome, potential side effects: every shift, Assess barriers to learning: every shift, Assess readiness for medication education: every shift Discharge/Continuing Care - Education Needs Education Needs: Patient Medication, Patient Diagnosis/Disease Process, Patient Coping Skills, Patient Community resources, Patient Nutrition, Patient Health Practices/Safety, Patient Aftercare Safety Plan - Discharge Discharge Criteria: Free of Suicidal thoughts, Free of agitation, Normal sleep pattern
[2017-01-20 08:41] LABS: BASO # 0.02 K/mm3 (0.0-2.0); BASO % 0.3 % (0.0-3.0); EOS # 0.2 (0.0-0.7); GRAN # 4.55 (1.4-6.5); GRAN % 62.9 % (50.0-68.0); HEMATOCRIT 44.8 % (42.0-52.0); LYMPH # 1.9 (1.2-3.4); LYMPH % 26.1 % (22.0-35.0); MEAN CELL VOLUME 88.5 fl (80.0-105.0); MEAN CORPUSCULAR HEMOGLOBIN 30.4 pg (25.0-35.0); MEAN CORPUSCULAR HGB CONC 34.4 g/dl (31.0-37.0); MEAN PLATELET VOLUME 11.3 fl (7.0-11.0); MONO # 0.6 (0.1-0.6); MONO % 7.7 % (1.0-6.0); RED CELL DISTRIBUTION WIDTH 13.5 % (11.5-14.5); WHITE BLOOD COUNT 7.2 10^3/ul (4.5-11.0)
--- NOTE | 2017-01-20 09:11 | PCM.PSYCH ---
Initial Psychiatric Evaluation - Initial Psychiatric Evaluation Type of Admission: Voluntary Legal Status: Capacity Chief Complaint (in patient's own words): "depressed" History of Present Illness and Precipitating Events: Patient has a 40-year-old employed and domiciled male with a history of depression and anxiety, severe alcohol use disorder, cocaine and marijuana use disorder, no prior history of admissions or suicide attempts, no outpatient psychiatric treatment x15 months who was transferred from the medical floor to the psychiatric unit for treatment of depression. Review of Dr. Sanchez's consultation indicates that patient endorsed symptoms of depression with helplessness and hopelessness, poor sleep and anxiety. He reported work related stressors, discord with as well as difficulty with substance use. Presently patient is calm and cooperative and well oriented to date, month, year , location and circumstances. Presently he denies any major new concerns and indicates that he slept well last night. Affect is constricted. Thought process is clear and logical. Patient continues to be an agreement with treatment plan regarding changing medications to better target current psychiatric symptoms of depression and anxiety. His insight and judgment are good. PSYCHIATRIC HISTORY No prior psychiatric admissions. No history of suicide attempts. Patient used to be engaged in outpatient psychiatric treatment with the psychiatrist in [place] however discontinued treatment because it was unaffordable. Pt. home medications included Lexapro 40 mg, klonopin 1 mg, and adderall 10 mg PRN SOCIAL HISTORY Patient was born and raised in [place]. He resides in a house in [place] with his and two children,14 year old daughter and 10 year old son. 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 Patient admits to excessive alcohol use which can vary from 5-10 drinks a day. Patient denies any history of withdrawal tremors or seizures. Denies history of alcohol-related hallucinations. Patient also has a history of abusing marijuana and cocaine. Last use of marijuana was last week and last use of cocaine was earlier this week Current Medications: Active Medications Generic Name Dose Route Start Last Admin Trade Name Freq PRN Reason Stop Dose Admin Acetaminophen 650 mg 01/19/17 20:01 Tylenol 325mg Tab PO Q4 PRN Pain, Mild (1-3) Al Hydrox/Mg Hydrox/Simethicone 30 ml 01/19/17 20:01 Maalox Plus 30 Ml PO DAILY PRN Upset Stomach Aripiprazole 5 mg 01/20/17 08:00 Abilify PO DAILY [facility] Atorvastatin Calcium 20 mg 01/20/17 17:00 Lipitor PO DIN [facility] Bupropion HCl 75 mg 01/20/17 08:00 Wellbutrin PO BID [facility] Clonazepam 0.5 mg 01/19/17 22:00 01/19/17 21:35 Klonopin PO 0.5 mg [facility] CHRISTOPHER Administration Protocol Clonidine HCl 0.1 mg 01/19/17 20:08 Catapres PO BID PRN Systolic Blood Pressure Folic Acid 1 mg 01/20/17 08:00 Folic Acid PO DAILY [facility] Hydrochlorothiazide 25 mg 01/20/17 08:00 Hydrodiuril PO DAILY [facility] Lisinopril 20 mg 01/20/17 08:00 Zestril PO DAILY [facility] Magnesium Hydroxide 30 ml 01/19/17 20:01 Milk Of Magnesia PO DAILY PRN Constipation Multivitamins 1 tab 01/20/17 08:00 Thera Tab PO DAILY [facility] Pantoprazole Sodium 40 mg 01/20/17 08:00 Protonix Ec Tab PO DAILY [facility] Thiamine HCl 100 mg 01/20/17 08:00 Vitamin B1 Tab PO DAILY [facility] Zaleplon 5 mg 01/19/17 22:00 01/19/17 21:35 Sonata PO 5 mg HS [facility]RISTOPHER Administration Past Psychiatric History - Past Psychiatric History Pertinent Medical Hx (Current Medical&Sleep Prob, Allergies): Allergies Allergy/AdvReac Type Severity Reaction Status Date / Time No Known Allergies Allergy Verified 01/19/17 23:38 Dextroamphetamine/Amphetamine [Adderall 10 mg Tablet] 10 mg PO DAILY 01/17/17 Escitalopram [Lexapro] 20 mg PO DAILY 01/17/17 clonazePAM [Klonopin] 1 mg PO BID 01/17/17 DSM 5 DX - DSM 5 DSM 5 Diagnosis: Major depression, severe and recurrent without psychotic features Panic disorder by history Rule out generalized anxiety disorder Alcohol use disorder, severe Cocaine and marijuana use this order mild to moderate Likely contribution of substance induced mood disorder - Recommended/Plan of Treatment Treatment Recommendations and Plan of Treatment: * Grp, milieu and supportive tx * Wellbutrin 75 mg PO be BID for symptoms of depression. * Klonopin 0.5 mg AM & HS for symptoms of anxiety and for alcohol withdrawal. * Abilify 5 mg daily to augment Wellbutrin for depression. * Sonata 5 mg HS for insomnia. * Awaiting medical consult. * Consider treatment with naltrexone to help with substance dependency, to discuss with patient * Vitals reviewed and noted below: 01/19/17 01/20/17 19:14 07:05 Temperature 98.2 F 97.8 F Pulse Rate 113 H 73 Respiratory 20 18 Rate Blood Pressure 150/89 134/83 PSYCHIATRIC ADMISSION LABS Laboratory Results - last 24 hr 01/20/17 08:20 WBC 7.2 RBC 5.06 Hgb 15.4 Hct 44.8 MCV 88.5 MCH 30.4 MCHC 34.4 RDW 13.5 Plt Count 181 MPV 11.3 H Gran % 62.9 Lymph % (Auto) 26.1 [place] % (Auto) 7.7 H Eos % (Auto) 3.0 Baso % (Auto) 0.3 Gran # 4.55 Lymph # 1.9 [place] # 0.6 Eos # 0.2 Baso # 0.02
[2017-01-20] MEDS: Multivitamin Therapeutic Tab PO SCH (09:27)
[2017-01-20] MEDS: Pantoprazole 40 mg EC Tab PO SCH (09:27)
[2017-01-20 09:48] LABS: ALB/GLOB RATIO 1.4 (1.1-1.8); ALKALINE PHOSPHATASE 74 U/L (38-126); ALT/SGPT 78 U/L (7-56); AST/SGOT 58 U/L (17-59); BILIRUBIN,TOTAL 1.2 mg/dL (0.2-1.3); BLOOD UREA NITROGEN 19 mg/dL (7-21); CALCIUM 9.4 mg/dL (8.4-10.5); CARBON DIOXIDE 28 mmol/L (21-33); CHLORIDE 103 mmol/L (98-107); CHOLESTEROL 179 mg/dL (130-200); GFR AFRICAN-AMERICAN > 60; GLUCOSE,FASTING 109 mg/dL (65-110); GLUCOSE,RANDOM 109 mg/dL (70-110); POTASSIUM 4.2 mmol/L (3.6-5.0); SODIUM 141 mmol/L (132-148); TOTAL PROTEIN 7.4 g/dL (5.8-8.3)
[2017-01-20 10:44] LABS: FREE T4 1.15 ng/dL (0.78-2.19)
[2017-01-20 10:58] LABS: THYROID STIMULATING HORMONE 1.53 mIU/mL (0.46-4.68)
--- NOTE | 2017-01-20 13:10 | CP.PCM.CON ---
<ROSAMARIA LICEA - Last Filed: 01/20/17 12:56> History of Present Illness - History of Present Illness History of Present Illness: CC: Medical consult 41 year old male with the past medical history of anxiety, depression, hypertension who initially was admitted to [facility] for shortness of breath for 2 months and dyspnea upon walking up the stairs. Patient woke up today and didn' t feel well and decided to come into the emergency department to get examined. The patient reported bilateral lower extremity swelling that comes and goes also. The patient also reported some lightheadedness in conjunction with the initial presenting complaint. The patient denied any changes in vision, headaches, or any other complaints. The patient was seen by Cardiology and Psychiatry while admitted in the hospital. The Employment Consultant recommended a Echo test and a cardiac stress test while admitted. Patient was seen by Dr. Jade and it was recommended by her to be admitted to the voluntary Psychiatric unit for further management of his substance abuse and anxiety problems. The patient agreed and was discharged to the Psychiatric unit for further management and assessment. Today, medicine was consulted by psych for medical evaluation. Pt medications were continued from his admission to [facility]. Pt denied CP, SOB, n/v/d, chills, fever, dysuria, abdominal pain, fatigue, and dizziness. PMD: Dr. Smith ([place], [place]) Psychiatrist: Dr. Brock ([place]) PMHx: Anxiety, depression, HTN Medications: Lexapro, Aderall, Klonipin Surghx: Denies Allergies: NKDA Socialhx: Current alcohol drinker (suspected alcoholic) and current cocaine abuse (Two days ago last time). Denies smoking history. Denies any other illicit drug use. Review of Systems - Review of Systems All systems: reviewed and no additional remarkable complaints except (for what is stated in HPI.) Past Patient History - Infectious Disease Hx of Infectious Diseases: None - Past Social History Smoking Status: Current Some Days Smoker - CARDIAC Hx Hypertension: Yes (no treatment) - MUSCULOSKELETAL/RHEUMATOLOGICAL Hx Falls: No - GASTROINTESTINAL Hx Gastrointestinal Disorders: Yes (obese) - PSYCHIATRIC Hx Anxiety: Yes Hx Depression: Yes Hx Substance Use: Yes Meds Allergies/Adverse Reactions: Allergies Allergy/AdvReac Type Severity Reaction Status Date / Time No Known Allergies Allergy Verified 01/19/17 23:38 - Medications Medications: Current Medications Acetaminophen (Tylenol 325mg Tab) 650 mg PO Q4 PRN PRN Reason: Pain, Mild (1-3) Al Hydrox/Mg Hydrox/Simethicone (Maalox Plus 30 Ml) 30 ml PO DAILY PRN PRN Reason: Upset Stomach Aripiprazole (Abilify) 5 mg PO DAILY [facility] Last Admin: 01/20/17 09:26 Dose: 5 mg Atorvastatin Calcium (Lipitor) 20 mg PO DIN [facility] Bupropion HCl (Wellbutrin) 75 mg PO BID [facility] Last Admin: 01/20/17 09:26 Dose: 75 mg Clonazepam (Klonopin) 0.5 mg PO [facility]STOPHER PRN Reason: Protocol Last Admin: 01/20/17 09:26 Dose: 0.5 mg Clonidine HCl (Catapres) 0.1 mg PO BID PRN PRN Reason: Systolic Blood Pressure Folic Acid (Folic Acid) 1 mg PO DAILY [facility] Last Admin: 01/20/17 09:26 Dose: 1 mg Hydrochlorothiazide (Hydrodiuril) 25 mg PO DAILY [facility] Last Admin: 01/20/17 09:25 Dose: 25 mg Lisinopril (Zestril) 20 mg PO DAILY [facility] Last Admin: 01/20/17 09:28 Dose: 20 mg Magnesium Hydroxide (Milk Of Magnesia) 30 ml PO DAILY PRN PRN Reason: Constipation Multivitamins (Thera Tab) 1 tab PO DAILY [facility] Last Admin: 01/20/17 09:27 Dose: 1 tab Pantoprazole Sodium (Protonix Ec Tab) 40 mg PO DAILY [facility] Last Admin: 01/20/17 09:27 Dose: 40 mg Thiamine HCl (Vitamin B1 Tab) 100 mg PO DAILY [facility] Last Admin: 01/20/17 09:26 Dose: 100 mg Zaleplon (Sonata) 5 mg PO HS [facility] Last Admin: 01/19/17 21:35 Dose: 5 mg Physical Exam - Constitutional Appears: No Acute Distress - Head Exam Head Exam: ATRAUMATIC, NORMOCEPHALIC - Eye Exam Eye Exam: EOMI, PERRL - ENT Exam ENT Exam: Mucous Membranes Moist - Neck Exam Neck exam: Positive for: Full Rom. Negative for: Lymphadenopathy, Tenderness, Thyromegaly - Respiratory Exam Respiratory Exam: Clear to Auscultation Bilateral. absent: Rales, Rhonchi, Wheezes - Cardiovascular Exam Cardiovascular Exam: RRR. absent: Diastolic murmur, Gallop, Rubs, Systolic Murmur - GI/Abdominal Exam GI & Abdominal Exam: Soft. absent: Distended, Guarding, Organomegaly, Rebound, Tenderness - Extremities Exam Extremities exam: Positive for: normal inspection - Neurological Exam Neurological exam: Alert, Oriented x3 - Psychiatric Exam Psychiatric exam: Normal Affect, Normal Mood - Skin Skin Exam: Dry, Intact, Normal Color, Warm Results - Vital Signs Recent Vital Signs: Last Vital Signs Temp 97.8 F 01/20/17 07:05 Pulse 73 01/20/17 09:28 Resp 18 01/20/17 07:05 BP 134/83 01/20/17 09:28 Pulse Ox 99 01/19/17 19:14 - Labs Result Diagrams: 01/20/17 08:20 01/20/17 08:20 Labs: Laboratory Results - last 24 hr 01/20/17 01/20/17 01/20/17 08:20 08:20 08:20 WBC 7.2 RBC 5.06 Hgb 15.4 Hct 44.8 MCV 88.5 MCH 30.4 MCHC 34.4 RDW 13.5 Plt Count 181 MPV 11.3 H Gran % 62.9 Lymph % (Auto) 26.1 [place] % (Auto) 7.7 H Eos % (Auto) 3.0 Baso % (Auto) 0.3 Gran # 4.55 Lymph # 1.9 [place] # 0.6 Eos # 0.2 Baso # 0.02 Sodium 141 Potassium 4.2 Chloride 103 Carbon Dioxide 28 Anion Gap 14 BUN 19 Creatinine 1.3 Est GFR ( Amer) > 60 Est GFR (Non-Af Amer) > 60 Random Glucose 109 Fasting Glucose 109 Calcium 9.4 Total Bilirubin 1.2 AST 58 ALT 78 H Alkaline Phosphatase 74 Total Protein 7.4 Albumin 4.3 Globulin 3.0 Albumin/Globulin Ratio 1.4 Triglycerides 215 H Cholesterol 179 LDL Cholesterol Direct 117 HDL Cholesterol 39 Free T4 1.15 TSH 3rd Generation 1.53 Assessment & Plan - Assessment and Plan (Free Text) Assessment: 41 year old male with a past medical history of anxiety, depression, panic attacks and hypertension who was recently admitted for dyspnea r/o ACS. Currently, pt is being evaluated and treated for Major depression, severe and recurrent without psychotic features, generalized anxiety disorder, alcohol use disorder, severe, and substance abuse. Plan: 1. Major depressive disorder 2. Generalized Anxiety disorder - Management as per psychiatry - Klonopin 0.5 mg PO AMHS - Abilify 5 mg PO daily - Sonata 5 mg PO HS 3. HTN - HCTZ 25 mg PO daily - Lisinopril 20 mg PO daily 4. HLD - Lipitor 20 mg PO din 5. Multisubstance Abuse - Educated pt on risks of alcohol and illicit drug use and advised cessation - Folate 1 mg PO daily - Thiamine 100 mg PO daily - Multivitamin 6. GERD - C/w Maalox, protonix GI/DVT PPx - Protonix - DVT ppx not needed as pt is ambulating Thank you for the consultation regarding Mr. Nath. Pt will be continued on current medications. We will sign off at this time. Please re-consult as needed. Pt seen and discussed in detail with Dr. Wong. Braulio Licea, PGY1 <Renita Wong - Last Filed: 01/20/17 18:14> Meds - Medications Medications: Current Medications Acetaminophen (Tylenol 325mg Tab) 650 mg PO Q4 PRN PRN Reason: Pain, Mild (1-3) Al Hydrox/Mg Hydrox/Simethicone (Maalox Plus 30 Ml) 30 ml PO DAILY PRN PRN Reason: Upset Stomach Aripiprazole (Abilify) 5 mg PO DAILY [facility] Last Admin: 01/20/17 09:26 Dose: 5 mg Atorvastatin Calcium (Lipitor) 20 mg PO DIN [facility] Last Admin: 01/20/17 16:33 Dose: 20 mg Bupropion HCl (Wellbutrin) 75 mg PO BID [facility] Last Admin: 01/20/17 16:15 Dose: 75 mg Clonazepam (Klonopin) 0.5 mg PO AMHS [facility] PRN Reason: Protocol Last Admin: 01/20/17 09:26 Dose: 0.5 mg Clonidine HCl (Catapres) 0.1 mg PO BID PRN PRN Reason: Systolic Blood Pressure Last Admin: 01/20/17 16:15 Dose: 0.1 mg Folic Acid (Folic Acid) 1 mg PO DAILY [facility] Last Admin: 01/20/17 09:26 Dose: 1 mg Hydrochlorothiazide (Hydrodiuril) 25 mg PO DAILY [facility] Last Admin: 01/20/17 09:25 Dose: 25 mg Lisinopril (Zestril) 20 mg PO DAILY [facility] Last Admin: 01/20/17 09:28 Dose: 20 mg Magnesium Hydroxide (Milk Of Magnesia) 30 ml PO DAILY PRN PRN Reason: Constipation Multivitamins (Thera Tab) 1 tab PO DAILY [facility] Last Admin: 01/20/17 09:27 Dose: 1 tab Pantoprazole Sodium (Protonix Ec Tab) 40 mg PO DAILY [facility] Last Admin: 01/20/17 09:27 Dose: 40 mg Thiamine HCl (Vitamin B1 Tab) 100 mg PO DAILY [facility] Last Admin: 01/20/17 09:26 Dose: 100 mg Zaleplon (Sonata) 5 mg PO HS [facility] Last Admin: 01/19/17 21:35 Dose: 5 mg Results - Vital Signs Recent Vital Signs: Last Vital Signs Temp 97.8 F 01/20/17 07:05 Pulse 101 H 01/20/17 16:15 Resp 18 01/20/17 07:05 BP 121/85 01/20/17 18:02 Pulse Ox 99 01/19/17 19:14 - Labs Result Diagrams: 01/20/17 08:20 01/20/17 08:20 Labs: Laboratory Results - last 24 hr 01/20/17 01/20/17 01/20/17 08:20 08:20 08:20 WBC 7.2 RBC 5.06 Hgb 15.4 Hct 44.8 MCV 88.5 MCH 30.4 MCHC 34.4 RDW 13.5 Plt Count 181 MPV 11.3 H Gran % 62.9 Lymph % (Auto) 26.1 [place] % (Auto) 7.7 H Eos % (Auto) 3.0 Baso % (Auto) 0.3 Gran # 4.55 Lymph # 1.9 [place] # 0.6 Eos # 0.2 Baso # 0.02 Sodium 141 Potassium 4.2 Chloride 103 Carbon Dioxide 28 Anion Gap 14 BUN 19 Creatinine 1.3 Est GFR ( Amer) > 60 Est GFR (Non-Af Amer) > 60 Random Glucose 109 Fasting Glucose 109 Calcium 9.4 Total Bilirubin 1.2 AST 58 ALT 78 H Alkaline Phosphatase 74 Total Protein 7.4 Albumin 4.3 Globulin 3.0 Albumin/Globulin Ratio 1.4 Triglycerides 215 H Cholesterol 179 LDL Cholesterol Direct 117 HDL Cholesterol 39 Free T4 TSH 3rd Generation RPR Nonreactive 01/20/17 08:20 WBC RBC Hgb Hct MCV MCH MCHC RDW Plt Count MPV Gran % Lymph % (Auto) [place] % (Auto) Eos % (Auto) Baso % (Auto) Gran # Lymph # [place] # Eos # Baso # Sodium Potassium Chloride Carbon Dioxide Anion Gap BUN Creatinine Est GFR ( Amer) Est GFR (Non-Af Amer) Random Glucose Fasting Glucose Calcium Total Bilirubin AST ALT Alkaline Phosphatase Total Protein Albumin Globulin Albumin/Globulin Ratio Triglycerides Cholesterol LDL Cholesterol Direct HDL Cholesterol Free T4 1.15 TSH 3rd Generation 1.53 RPR Attending/Attestation - Attestation I have personally seen and examined this patient.: Yes I have fully participated in the care of the patient.: Yes I have reviewed all pertinent clinical information: Yes Notes (Text): 01/20/17 18:05 MEDICAL CONSULTATION 41 year old male with past medical history of anxiety and depression who presented with complaint of chest pain and shortness of breath. Serial cardiac enzymes were negative and ACS was ruled out. Stress test was done which was essentially negative. He was seen by psychiatrist depression, anxiety and substance/alcohol abuse and transferred to inpatient psychiatry unit. Continue with management as per psychiatrist. He was counselled on risk of continued substance abuse and on alcohol cessation. Continue with aspirin, statin and lisinopril. Thank you Dr. Sanchez for allowing us to participate in the care of this patient. Please re-consult as needed. Renita Wong MD Hospitalist.
--- NOTE | 2017-01-21 08:56 | PCM.PYCHPN ---
Psychiatric Progress Note - Psychiatric Progress Note Patient seen today, length of contact: 25 min Patient Chief Complaint: Sometimes hopeful, sometimes hopeless "depends on the time of day". Problems Identified/Issues Discussed: History of Present Illness and Precipitating Events: Patient has a 40-year-old employed and domiciled male with a history of depression and anxiety, severe alcohol use disorder, cocaine and marijuana use disorder, no prior history of admissions or suicide attempts, no outpatient psychiatric treatment x15 months who was transferred from the medical floor to the psychiatric unit for treatment of depression. Review of Dr. Sanchez's consultation indicates that patient endorsed symptoms of depression with helplessness and hopelessness, poor sleep and anxiety. He reported work related stressors, discord with as well as difficulty with substance use. Presently patient is calm and cooperative and well oriented to date, month, year , location and circumstances. Presently he denies any major new concerns and indicates that he slept well last night. Affect is constricted. Thought process is clear and logical. Patient continues to be an agreement with treatment plan regarding changing medications to better target current psychiatric symptoms of depression and anxiety. His insight and judgment are good. PSYCHIATRIC HISTORY No prior psychiatric admissions. No history of suicide attempts. Patient used to be engaged in outpatient psychiatric treatment with the psychiatrist in [place] however discontinued treatment because it was unaffordable. Pt. home medications included Lexapro 40 mg, klonopin 1 mg, and adderall 10 mg PRN SOCIAL HISTORY Patient was born and raised in [place]. He resides in a house in [place] with his and two children,14 year old daughter and 10 year old son. 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 Patient admits to excessive alcohol use which can vary from 5-10 drinks a day. Patient denies any history of withdrawal tremors or seizures. Denies history of alcohol-related hallucinations. Patient also has a history of abusing marijuana and cocaine. Last use of marijuana was last week and last use of cocaine was earlier this week. Patient does not smoke tobacco. ~~~~~~~~~~~~~~~~ I reviewed recent notes and met with patient at bedside. Patient is calm, cooperative and well-oriented to circumstances. Appearance is a little unkempt. Patient reports that he is feeling better and is currently tolerating his medications except for some sedation associated with klonopin. Sometimes hopeful , sometimes hopeless "depends on the time of day". He denies having any suicidal thoughts. Presently denies any new discomfort or pain. His thought process remains clear and logical. Staff notes indicate the patient has been in good control, participating in groups and interacting appropriately with staff and peers. He is anxious at times but overall pleasant. There were no behavioral issues over the weekend Diagnostic Results: Major depression, severe and recurrent without psychotic features Panic disorder by history Rule out generalized anxiety disorder Alcohol use disorder, severe Cocaine and marijuana use this order mild to moderate Likely contribution of substance induced mood disorder Medication Change: No Medical Record Reviewed: Yes Mental Status Examination - Cognitive Function Orientation: Person, Place, Situation Memory: Intact Attention: WNL Concentration: WNL Association: WNL Fund of Knowledge: WNL - Mood Mood: Depressed (Sometimes hopeful, sometimes hopeless "depends on the time of day".), Anxious - Affect Affect: Constricted - Speech Speech: Appropriate - Formal Thought Process Formal Thought Process: No Impairment - Suicidal Ideation Suicidal Ideation: No - Homicidal Ideation Homicidal Ideation: No Goal/Treatment Plan - Goal/Treatment Plan Need for Continued Stay: Remain at risks for inpatient hospitalization Progress Toward Problem(s) and Goals/Treatment Plan: * Grp, milieu and supportive tx * Wellbutrin 75 mg PO be BID for symptoms of depression. * Klonopin 0.5 mg AM & HS for symptoms of anxiety and for alcohol withdrawal. * Abilify 5 mg daily to augment Wellbutrin for depression. * Sonata 5 mg HS for insomnia. * Appreciate f/u by Dr. Wong on 01/20/17~signed off * Consider treatment with naltrexone to help with substance dependency, to discuss with patient * Vitals reviewed and noted below: Selected Entries 01/20/17 01/20/17 01/20/17 07:05 09:28 16:00 Temperature 97.8 F Pulse Rate 73 73 101 H Respiratory 18 Rate Blood Pressure 134/83 134/83 144/105 H 01/20/17 01/20/17 16:15 18:02 Temperature Pulse Rate 101 H Respiratory Rate Blood Pressure 144/105 H 121/85 PSYCHIATRIC ADMISSION LABS Laboratory Results - last 24 hr 01/20/17 08:20 WBC 7.2 RBC 5.06 Hgb 15.4 Hct 44.8 MCV 88.5 MCH 30.4 MCHC 34.4 RDW 13.5 Plt Count 181 MPV 11.3 H Gran % 62.9 Lymph % (Auto) 26.1 [place] % (Auto) 7.7 H Eos % (Auto) 3.0 Baso % (Auto) 0.3 Gran # 4.55 Lymph # 1.9 [place] # 0.6 Eos # 0.2 Baso # 0.02 01/20/17 01/20/17 01/20/17 08:20 08:20 08:20 Sodium 141 Potassium 4.2 Chloride 103 Carbon Dioxide 28 Anion Gap 14 BUN 19 Creatinine 1.3 Est GFR (Non-Af Amer) > 60 Random Glucose 109 Fasting Glucose 109 Calcium 9.4 Total Bilirubin 1.2 AST 58 ALT 78 H Alkaline Phosphatase 74 Total Protein 7.4 Albumin 4.3 Globulin 3.0 Albumin/Globulin Ratio 1.4 Triglycerides 215 H Cholesterol 179 LDL Cholesterol Direct 117 HDL Cholesterol 39 Free T4 1.15 TSH 3rd Generation 1.53 RPR Nonreactive - Smoking Cessation Smoking Cessation Initiated: No
[2017-01-21] MEDS: Pantoprazole 40 mg EC Tab PO SCH (08:59)
[2017-01-21] MEDS: Multivitamin Therapeutic Tab PO SCH (08:59)
[2017-01-22] MEDS: Multivitamin Therapeutic Tab PO SCH (07:50)
[2017-01-22] MEDS: Pantoprazole 40 mg EC Tab PO SCH (07:50)
--- NOTE | 2017-01-22 11:17 | PCM.BM ---
<Luis Suarez - Last Filed: 01/22/17 11:16> Treatment Plan Problems - Problems identified on initial assessmt Anxiety Date Initiated: 01/19/17 Time Initiated: 23:16 Assessment reference: NA Status: Active Ineffective Coping Date Initiated: 01/19/17 Time Initiated: 23:17 Assessment reference: NA Status: Active Hopelessness/Helplessness Date Initiated: 01/19/17 Time Initiated: 23:17 Assessment reference: NA Status: Active Feelings of Worthlessness Date Initiated: 01/19/17 Time Initiated: 23:17 Assessment reference: NA Status: Active Knowledge Deficit: Alcohol Date Initiated: 01/19/17 Time Initiated: 23:18 Assessment reference: NA Status: Active Treatment assets and liabiliti Patient Assests: cooperative, educated, resourceful, ADL independent, financial stabiity, cognitively intact Patient Liabilities: poor support system, relationship conflicts, substance abuse, medical problems - Milieu Protocol Maintain good personal hygiene: daily Encourage regular showers, daily Remind patient to perform daily oral care, daily Assist patient to perform ADL's Maintain personal safety: every shift Educate patient to report safety concerns to staff, every shift Monitor environment for contraband/sharps Medication safety: Monitor for expected outcome, potential side effects: every shift, Assess barriers to learning: every shift, Assess readiness for medication education: every shift Milieu Narrative: * Grp, milieu and supportive tx * Wellbutrin 75 mg PO be BID for symptoms of depression. * Klonopin 0.5 mg AM & HS for symptoms of anxiety and for alcohol withdrawal. * Abilify 5 mg daily to augment Wellbutrin for depression. * Sonata 5 mg HS for insomnia. * Appreciate f/u by Dr. Wong on 01/20/17~signed off * Consider treatment with naltrexone to help with substance dependency, to discuss with patient * Vitals reviewed and noted below: Selected Entries 01/20/17 01/20/17 01/20/17 07:05 09:28 16:00 Temperature 97.8 F Pulse Rate 73 73 101 H Respiratory 18 Rate Blood Pressure 134/83 134/83 144/105 H 01/20/17 01/20/17 16:15 18:02 Temperature Pulse Rate 101 H Respiratory Rate Blood Pressure 144/105 H 121/85 PSYCHIATRIC ADMISSION LABS Laboratory Results - last 24 hr 01/20/17 08:20 WBC 7.2 RBC 5.06 Hgb 15.4 Hct 44.8 MCV 88.5 MCH 30.4 MCHC 34.4 RDW 13.5 Plt Count 181 MPV 11.3 H Gran % 62.9 Lymph % (Auto) 26.1 [place] % (Auto) 7.7 H Eos % (Auto) 3.0 Baso % (Auto) 0.3 Gran # 4.55 Lymph # 1.9 [place] # 0.6 Eos # 0.2 Baso # 0.02 01/20/17 01/20/17 01/20/17 08:20 08:20 08:20 Sodium 141 Potassium 4.2 Chloride 103 Carbon Dioxide 28 Anion Gap 14 BUN 19 Creatinine 1.3 Est GFR (Non-Af Amer) > 60 Random Glucose 109 Fasting Glucose 109 Calcium 9.4 Total Bilirubin 1.2 AST 58 ALT 78 H Alkaline Phosphatase 74 Total Protein 7.4 Albumin 4.3 Globulin 3.0 Albumin/Globulin Ratio 1.4 Triglycerides 215 H Cholesterol 179 LDL Cholesterol Direct 117 HDL Cholesterol 39 Free T4 1.15 TSH 3rd Generation 1.53 RPR Nonreactive Discharge/Continuing Care - Education Needs Education Needs: Patient Medication, Patient Diagnosis/Disease Process, Patient Coping Skills, Patient Community resources, Patient Nutrition, Patient Health Practices/Safety, Patient Aftercare Safety Plan - Discharge Discharge Criteria: Free of Suicidal thoughts, Free of agitation, Normal sleep pattern - Treatment Team Participation Patient/Family/SO Statement: * Grp, milieu and supportive tx * Wellbutrin 75 mg PO be BID for symptoms of depression. * Klonopin 0.5 mg AM & HS for symptoms of anxiety and for alcohol withdrawal. * Abilify 5 mg daily to augment Wellbutrin for depression. * Sonata 5 mg HS for insomnia. * Appreciate f/u by Dr. Wong on 01/20/17~signed off * Consider treatment with naltrexone to help with substance dependency, to discuss with patient * Vitals reviewed and noted below: Selected Entries 01/20/17 01/20/17 01/20/17 07:05 09:28 16:00 Temperature 97.8 F Pulse Rate 73 73 101 H Respiratory 18 Rate Blood Pressure 134/83 134/83 144/105 H 01/20/17 01/20/17 16:15 18:02 Temperature Pulse Rate 101 H Respiratory Rate Blood Pressure 144/105 H 121/85 PSYCHIATRIC ADMISSION LABS Laboratory Results - last 24 hr 01/20/17 08:20 WBC 7.2 RBC 5.06 Hgb 15.4 Hct 44.8 MCV 88.5 MCH 30.4 MCHC 34.4 RDW 13.5 Plt Count 181 MPV 11.3 H Gran % 62.9 Lymph % (Auto) 26.1 [place] % (Auto) 7.7 H Eos % (Auto) 3.0 Baso % (Auto) 0.3 Gran # 4.55 Lymph # 1.9 [place] # 0.6 Eos # 0.2 Baso # 0.02 01/20/17 01/20/17 01/20/17 08:20 08:20 08:20 Sodium 141 Potassium 4.2 Chloride 103 Carbon Dioxide 28 Anion Gap 14 BUN 19 Creatinine 1.3 Est GFR (Non-Af Amer) > 60 Random Glucose 109 Fasting Glucose 109 Calcium 9.4 Total Bilirubin 1.2 AST 58 ALT 78 H Alkaline Phosphatase 74 Total Protein 7.4 Albumin 4.3 Globulin 3.0 Albumin/Globulin Ratio 1.4 Triglycerides 215 H Cholesterol 179 LDL Cholesterol Direct 117 HDL Cholesterol 39 Free T4 1.15 TSH 3rd Generation 1.53 RPR Nonreactive Treatment Plan Review - Problem Anxiety Time Initiated: 23:16 Ineffective Coping Time Initiated: 23:17 Hopelessness/Helplessness Time Initiated: 23:17 Feelings of Worthlessness Time Initiated: 23:17 Knowledge Deficit: Alcohol Time Initiated: 23:18 <Cristel Leon Y - Last Filed: 01/23/17 15:36> Family Contact Family involvement: Famliy/SO not involved
--- NOTE | 2017-01-22 14:49 | PCM.PYCHPN ---
Psychiatric Progress Note - Psychiatric Progress Note Patient seen today, length of contact: 25 min Patient Chief Complaint: "I didn't sleep well last night". Medical Problems: see HPI sleep apnea obesity Diagnostic Results: 01/20/17 08:20 01/20/17 08:20 Lab Results 01/20/17 08:20: Free T4 1.15, TSH 3rd Generation 1.53 01/20/17 08:20: RPR Nonreactive 01/20/17 08:20: Sodium 141, Potassium 4.2, Chloride 103, Carbon Dioxide 28, Anion Gap 14, BUN 19, Creatinine 1.3, Est GFR ( Amer) > 60, Est GFR (Non- Af Amer) > 60, Random Glucose 109, Fasting Glucose 109, Calcium 9.4, Total Bilirubin 1.2, AST 58, ALT 78 H, Alkaline Phosphatase 74, Total Protein 7.4, Albumin 4.3, Globulin 3.0, Albumin/Globulin Ratio 1.4, Triglycerides 215 H, Cholesterol 179, LDL Cholesterol Direct 117, HDL Cholesterol 39 01/20/17 08:20: WBC 7.2, RBC 5.06, Hgb 15.4, Hct 44.8, MCV 88.5, MCH 30.4, MCHC 34.4, RDW 13.5, Plt Count 181, MPV 11.3 H, Gran % 62.9, Lymph % (Auto) 26.1, [place] % (Auto) 7.7 H, Eos % (Auto) 3.0, Baso % (Auto) 0.3, Gran # 4.55, Lymph # 1.9, [place] # 0.6, Eos # 0.2, Baso # 0.02 Vital Signs Temp Pulse Resp BP Pulse Ox 01/21/17 20:28 107 H 178/111 H 01/21/17 16:00 87 129/93 H 01/21/17 07:00 97.5 F L 73 22 139/105 H 01/20/17 18:02 121/85 01/20/17 16:15 101 H 144/105 H 01/20/17 16:00 101 H 144/105 H 01/20/17 09:28 73 134/83 01/20/17 07:05 97.8 F 73 18 134/83 01/19/17 19:14 98.2 F 113 H 20 150/89 99 DSM 5 Symptoms Update: shortly: Patient has a 40-year-old employed and domiciled male with a history of depression and anxiety, severe alcohol use disorder, cocaine and marijuana use disorder, no prior history of admissions or suicide attempts, no outpatient psychiatric treatment x15 months who was transferred from the medical floor to the psychiatric unit for treatment of depression. pt was transferred to the psychiatric inpatient unit over this weekend. pt was seen at the tx team meeting, pt said his sleep is better, but doses of medication "is not strong enough". Pt pt was educated bout tx plan and meds, pt verbalized understanding. Pt said that his mind not racing. pt tolerates meds well, no side effects observed or reported AIMS 0, o EPS. MSE: Pt was alert, oriented in self, time and place. Memory and concentration are improving, fund of knowledge is fair. 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 Pt looks stated age, obese, good personal hygiene, good ADLs, there is no psychomotor agitation/retardation, but obviously pt has difficulties to concentrate and stayed focused, speech was:overpoductive , eye contact: at times intense, mood described: "I am less depressed", affect: constricted, but more reactive, thought process:circumstantial, thought content: pt denied thoughts of harming self or others, denied intent or plan, denied SI/ HI, denied v/a/t hallucinations, denied paranoid ideation and pt does not appear to be internally preoccupied or responding to internal stimuli, insight : is limited, judgment:is fair, impulses are well controlled. Diagnostic Results: Major depression, severe and recurrent without psychotic features Panic disorder by history Rule out generalized anxiety disorder Alcohol use disorder, severe Cocaine and marijuana use this order mild to moderate Likely contribution of substance induced mood disorder Plan: Group, milieu and supportive tx will increase Wellbutrin to 100mg po tid for symptoms of depression. Klonopin 0.5 mg AM & HS for symptoms of anxiety and for alcohol withdrawal. Abilify 5 mg daily to augment Wellbutrin for depression. Sonata increased to 10 mg HS for insomnia. Appreciate f/u by Dr. Wong on 01/20/17~signed off Consider treatment with naltrexone to help with substance dependency, discussed with pt, pt expressed no interest to start it SW evaluation family involvement Will monitor closely Pt was educated about risk/benefits and alternatives of medications, coping strategies (safety plan, suicide prevention), relapse prevention, importance of follow up with psychiatrist and therapist, stay away from drugs/alcohol/smoking Medication Change: Yes Medical Record Reviewed: Yes Consults ordered or reviewed: medical consult appreciated Mental Status Examination - Cognitive Function Orientation: Person, Place, Situation Memory: Intact Attention: WNL Concentration: WNL Association: WNL Fund of Knowledge: WNL - Mood Mood: Depressed (Sometimes hopeful, sometimes hopeless "depends on the time of day".), Anxious - Affect Affect: Constricted - Speech Speech: Appropriate - Formal Thought Process Formal Thought Process: No Impairment - Suicidal Ideation Suicidal Ideation: No - Homicidal Ideation Homicidal Ideation: No Goal/Treatment Plan - Goal/Treatment Plan Need for Continued Stay: Remain at risks for inpatient hospitalization Progress Toward Problem(s) and Goals/Treatment Plan: * Grp, milieu and supportive tx * Wellbutrin 75 mg PO be BID for symptoms of depression. * Klonopin 0.5 mg AM & HS for symptoms of anxiety and for alcohol withdrawal. * Abilify 5 mg daily to augment Wellbutrin for depression. * Sonata 5 mg HS for insomnia. * Appreciate f/u by Dr. Wong on 01/20/17~signed off * Consider treatment with naltrexone to help with substance dependency, to discuss with patient * Vitals reviewed and noted below: Selected Entries 01/20/17 01/20/17 01/20/17 07:05 09:28 16:00 Temperature 97.8 F Pulse Rate 73 73 101 H Respiratory 18 Rate Blood Pressure 134/83 134/83 144/105 H 01/20/17 01/20/17 16:15 18:02 Temperature Pulse Rate 101 H Respiratory Rate Blood Pressure 144/105 H 121/85 PSYCHIATRIC ADMISSION LABS Laboratory Results - last 24 hr 01/20/17 08:20 WBC 7.2 RBC 5.06 Hgb 15.4 Hct 44.8 MCV 88.5 MCH 30.4 MCHC 34.4 RDW 13.5 Plt Count 181 MPV 11.3 H Gran % 62.9 Lymph % (Auto) 26.1 [place] % (Auto) 7.7 H Eos % (Auto) 3.0 Baso % (Auto) 0.3 Gran # 4.55 Lymph # 1.9 [place] # 0.6 Eos # 0.2 Baso # 0.02 01/20/17 01/20/17 01/20/17 08:20 08:20 08:20 Sodium 141 Potassium 4.2 Chloride 103 Carbon Dioxide 28 Anion Gap 14 BUN 19 Creatinine 1.3 Est GFR (Non-Af Amer) > 60 Random Glucose 109 Fasting Glucose 109 Calcium 9.4 Total Bilirubin 1.2 AST 58 ALT 78 H Alkaline Phosphatase 74 Total Protein 7.4 Albumin 4.3 Globulin 3.0 Albumin/Globulin Ratio 1.4 Triglycerides 215 H Cholesterol 179 LDL Cholesterol Direct 117 HDL Cholesterol 39 Free T4 1.15 TSH 3rd Generation 1.53 RPR Nonreactive
[2017-01-23 06:45] VITALS: O2SAT 98
[2017-01-23] MEDS: Pantoprazole 40 mg EC Tab PO SCH (08:24)
[2017-01-23] MEDS: Multivitamin Therapeutic Tab PO SCH (08:25)
--- NOTE | 2017-01-23 14:18 | PCM.PYCHPN ---
Psychiatric Progress Note - Psychiatric Progress Note Patient seen today, length of contact: 30min Patient Chief Complaint: "I am blaming myself for all my mistakes..." Medical Problems: see HPI sleep apnea obesity Diagnostic Results: 01/20/17 08:20 01/20/17 08:20 Lab Results 01/20/17 08:20: Free T4 1.15, TSH 3rd Generation 1.53 01/20/17 08:20: RPR Nonreactive 01/20/17 08:20: Sodium 141, Potassium 4.2, Chloride 103, Carbon Dioxide 28, Anion Gap 14, BUN 19, Creatinine 1.3, Est GFR ( Amer) > 60, Est GFR (Non- Af Amer) > 60, Random Glucose 109, Fasting Glucose 109, Calcium 9.4, Total Bilirubin 1.2, AST 58, ALT 78 H, Alkaline Phosphatase 74, Total Protein 7.4, Albumin 4.3, Globulin 3.0, Albumin/Globulin Ratio 1.4, Triglycerides 215 H, Cholesterol 179, LDL Cholesterol Direct 117, HDL Cholesterol 39 01/20/17 08:20: WBC 7.2, RBC 5.06, Hgb 15.4, Hct 44.8, MCV 88.5, MCH 30.4, MCHC 34.4, RDW 13.5, Plt Count 181, MPV 11.3 H, Gran % 62.9, Lymph % (Auto) 26.1, [place] % (Auto) 7.7 H, Eos % (Auto) 3.0, Baso % (Auto) 0.3, Gran # 4.55, Lymph # 1.9, [place] # 0.6, Eos # 0.2, Baso # 0.02 Vital Signs Temp Pulse Resp BP Pulse Ox 01/21/17 20:28 107 H 178/111 H 01/21/17 16:00 87 129/93 H 01/21/17 07:00 97.5 F L 73 22 139/105 H 01/20/17 18:02 121/85 01/20/17 16:15 101 H 144/105 H 01/20/17 16:00 101 H 144/105 H 01/20/17 09:28 73 134/83 01/20/17 07:05 97.8 F 73 18 134/83 01/19/17 19:14 98.2 F 113 H 20 150/89 99 DSM 5 Symptoms Update: Patient has a 40-year-old employed and domiciled male with a history of depression and anxiety, severe alcohol use disorder, cocaine and marijuana use disorder, no prior history of admissions or suicide attempts, no outpatient psychiatric treatment x15 months who was transferred from the medical floor to the psychiatric unit for treatment of depression. pt was transferred to the psychiatric inpatient unit over this weekend. pt was seen at the tx team meeting, pt said "I don't know, I don't feel good, I feel emotional..", pt said that he is crying nonstop but at the same time pt was enjoying the group therapy, pt asked about the sexual side effects "I have no sexual drive..", but at the same time pt was asking about the female who works here. obviously pt is in mixed stage depression and hypomania. Pt pt was educated bout tx plan and meds, pt verbalized understanding. pt said concentration is better. pt tolerates meds well, no side effects observed or reported AIMS 0, o EPS. MSE: Pt was alert, oriented in self, time and place. Memory and concentration are improving, fund of knowledge is fair. 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 Pt looks stated age, obese, good personal hygiene, good ADLs, there is no psychomotor agitation/retardation, some improvement with concentration, was able to focused, speech was: overpoductive , eye contact: at times intense, mood described: "I am emotional", affect: constricted, but more reactive, thought process:circumstantial, thought content:pt denied thoughts of harming self or others, denied intent or plan, denied SI/ HI, denied v/a/t hallucinations, denied paranoid ideation and pt does not appear to be internally preoccupied or responding to internal stimuli, insight: is limited, judgment:is fair, impulses are well controlled. Diagnostic Results: Major depression, severe and recurrent without psychotic features Panic disorder by history Rule out generalized anxiety disorder Alcohol use disorder, severe Cocaine and marijuana use this order mild to moderate Likely contribution of substance induced mood disorder Plan: Group, milieu and supportive tx Wellbutrin to 100mg po tid for symptoms of depression. Klonopin 0.5 mg AM & HS for symptoms of anxiety and for alcohol withdrawal. Abilify 5 mg po bid as a mood stabilizer and for augmentation for Wellbutrin Sonata 10 mg HS for insomnia. Appreciate f/u by Dr. Wong on 01/20/17~signed off Consider treatment with naltrexone to help with substance dependency, discussed with pt, pt expressed no interest to start it SW evaluation family involvement Will monitor closely Pt was educated about risk/benefits and alternatives of medications, coping strategies (safety plan, suicide prevention), relapse prevention, importance of follow up with psychiatrist and therapist, stay away from drugs/alcohol/smoking possible d/c 01/24-01/25 Medication Change: Yes Medical Record Reviewed: Yes Mental Status Examination - Cognitive Function Orientation: Person, Place, Situation Memory: Intact Attention: WNL Concentration: WNL Association: WNL Fund of Knowledge: WNL - Mood Mood: Depressed (Sometimes hopeful, sometimes hopeless "depends on the time of day".), Anxious - Affect Affect: Constricted - Speech Speech: Appropriate - Formal Thought Process Formal Thought Process: No Impairment - Suicidal Ideation Suicidal Ideation: No - Homicidal Ideation Homicidal Ideation: No Goal/Treatment Plan - Goal/Treatment Plan Need for Continued Stay: Remain at risks for inpatient hospitalization Progress Toward Problem(s) and Goals/Treatment Plan: * Grp, milieu and supportive tx * Wellbutrin 75 mg PO be BID for symptoms of depression. * Klonopin 0.5 mg AM & HS for symptoms of anxiety and for alcohol withdrawal. * Abilify 5 mg daily to augment Wellbutrin for depression. * Sonata 5 mg HS for insomnia. * Appreciate f/u by Dr. Wong on 01/20/17~signed off * Consider treatment with naltrexone to help with substance dependency, to discuss with patient * Vitals reviewed and noted below: Selected Entries 01/20/17 01/20/17 01/20/17 07:05 09:28 16:00 Temperature 97.8 F Pulse Rate 73 73 101 H Respiratory 18 Rate Blood Pressure 134/83 134/83 144/105 H 01/20/17 01/20/17 16:15 18:02 Temperature Pulse Rate 101 H Respiratory Rate Blood Pressure 144/105 H 121/85 PSYCHIATRIC ADMISSION LABS Laboratory Results - last 24 hr 01/20/17 08:20 WBC 7.2 RBC 5.06 Hgb 15.4 Hct 44.8 MCV 88.5 MCH 30.4 MCHC 34.4 RDW 13.5 Plt Count 181 MPV 11.3 H Gran % 62.9 Lymph % (Auto) 26.1 [place] % (Auto) 7.7 H Eos % (Auto) 3.0 Baso % (Auto) 0.3 Gran # 4.55 Lymph # 1.9 [place] # 0.6 Eos # 0.2 Baso # 0.02 01/20/17 01/20/17 01/20/17 08:20 08:20 08:20 Sodium 141 Potassium 4.2 Chloride 103 Carbon Dioxide 28 Anion Gap 14 BUN 19 Creatinine 1.3 Est GFR (Non-Af Amer) > 60 Random Glucose 109 Fasting Glucose 109 Calcium 9.4 Total Bilirubin 1.2 AST 58 ALT 78 H Alkaline Phosphatase 74 Total Protein 7.4 Albumin 4.3 Globulin 3.0 Albumin/Globulin Ratio 1.4 Triglycerides 215 H Cholesterol 179 LDL Cholesterol Direct 117 HDL Cholesterol 39 Free T4 1.15 TSH 3rd Generation 1.53 RPR Nonreactive
[2017-01-24 07:12] VITALS: BP 139/94; PULSE 89; RESP 18; TEMP 97.8
[2017-01-24] MEDS: Multivitamin Therapeutic Tab PO SCH (08:22)
[2017-01-24] MEDS: Pantoprazole 40 mg EC Tab PO SCH (08:24)
--- NOTE | 2017-01-24 14:50 | PCM.PYCHDC ---
Mental Status Examination - Mental Status Examination Orientation: Person, Place, Situation, Time Memory: Intact Mood: Neutral Affect: Broad (and mood congruent) Speech: Appropriate Attention: WNL Concentration: WNL Association: WNL Fund of Knowledge: WNL Formal Thought Process: No Impairment Description of patient's judgement and insight: Pt has improved insight into mental and medical illness, pt was compliant with medications and unit rules and regulations, pt was going to groups, was calm, cooperative, socially appropriate, no behavioral incidents, no agitation, no aggression. Psychotic Thoughts and Behaviors: Pt denied v/a/t hallucinations, denied paranoid ideations, pt does not appear to be psychotic, and thought process is goal directed. Suicidal Ideation: No Current Homicidal Ideation?: No Plan: pt adamantly denied thoughts of harming self or others denied intent or plan. Discharge Summary - Discharge Note Reason for Hospitalization: depressive symptoms, suicidal ideation, inability to function, please see Dr. Mendoza's note for more detailed information Psychiatric History (includes Medical, Family, Personal Hx): patient has self reported history of depression and anxiety, BD, ADHD Laboratory Data: 01/20/17 08:20 01/20/17 08:20 Lab Results 01/20/17 08:20: Free T4 1.15, TSH 3rd Generation 1.53 01/20/17 08:20: RPR Nonreactive 01/20/17 08:20: Sodium 141, Potassium 4.2, Chloride 103, Carbon Dioxide 28, Anion Gap 14, BUN 19, Creatinine 1.3, Est GFR ( Amer) > 60, Est GFR (Non- Af Amer) > 60, Random Glucose 109, Fasting Glucose 109, Calcium 9.4, Total Bilirubin 1.2, AST 58, ALT 78 H, Alkaline Phosphatase 74, Total Protein 7.4, Albumin 4.3, Globulin 3.0, Albumin/Globulin Ratio 1.4, Triglycerides 215 H, Cholesterol 179, LDL Cholesterol Direct 117, HDL Cholesterol 39 01/20/17 08:20: WBC 7.2, RBC 5.06, Hgb 15.4, Hct 44.8, MCV 88.5, MCH 30.4, MCHC 34.4, RDW 13.5, Plt Count 181, MPV 11.3 H, Gran % 62.9, Lymph % (Auto) 26.1, [place] % (Auto) 7.7 H, Eos % (Auto) 3.0, Baso % (Auto) 0.3, Gran # 4.55, Lymph # 1.9, [place] # 0.6, Eos # 0.2, Baso # 0.02 Vital Signs Temp Pulse Resp BP Pulse Ox 01/24/17 08:22 89 139/94 H 01/24/17 07:11 97.8 F 89 18 139/94 H 01/23/17 16:00 102 H 143/94 H 01/23/17 13:59 97.2 F L 01/23/17 08:23 81 150/91 H 01/23/17 06:43 97.7 F 81 20 150/90 98 01/22/17 15:48 101 H 150/96 H 01/21/17 20:28 107 H 178/111 H 01/21/17 16:00 87 129/93 H 01/21/17 07:00 97.5 F L 73 22 139/105 H 01/20/17 18:02 121/85 01/20/17 16:15 101 H 144/105 H 01/20/17 16:00 101 H 144/105 H 01/20/17 09:28 73 134/83 01/20/17 07:05 97.8 F 73 18 134/83 01/19/17 19:14 98.2 F 113 H 20 150/89 99 Consultations:: List each consultation separately and include: 1. Reason for request. 2. Findings. 3. Follow-up Consultations: medical consult appreciated please see notes for more detailed information Summary of Hospital Course include:: 1. Description of specific treatment plan utilized for patients during their course of treatmen. 2. Summarize the time- course for resolution of acute symptoms and/or regressed behaviors. 3. Describe issues identified and worked on during hospitalization. 4. Describe medication utilized. 5. Describe medical problems identified and treated. 6. Reassessment of suicide risk Summary of Hospital Course: as per initial note: Patient has a 40-year-old employed and domiciled male with a history of depression and anxiety, severe alcohol use disorder, cocaine and marijuana use disorder, no prior history of admissions or suicide attempts, no outpatient psychiatric treatment x15 months who was transferred from the medical floor to the psychiatric unit for treatment of depression. patient endorsed symptoms of depression with helplessness and hopelessness, poor sleep and anxiety. He reported work related stress, discord with as well as difficulty with substance use. Presently patient is calm and cooperative and well oriented to date, month, year, location and circumstances. Presently he denies any major new concerns and indicates that he slept well last night. Affect is constricted. Thought process is clear and logical. Patient continues to be an agreement with treatment plan regarding changing medications to better target current psychiatric symptoms of depression and anxiety. His insight and judgment are good. at the time of admission patient presented to be depressed, hopeless, had irritability, mind racing, inability to sleep, thoughts of harming himself, but patient cares for protective factors. Patient was stabilized on the following medications: Lexapro was discontinued Klonopin was decreased to 0.5 mg twice a day Adderall was discontinued Wellbutrin was started and slowly titrated to 300 mg extended-release daily for depression and ADHD Sonata was started and slowly titrated to 10 mg at the nighttime for insomnia Abilify was started to slowly titrated to 10 mg daily for mood stabilization Patient tolerated medications well, no side effects observed or reported, aims 0 , no EPS. Over the course of this hospitalization pt was attending groups, pt also had medication management, had therapeutic milieu. Overall pt improved significantly, pt's affect became brighter, pt was less depressed, has realistic future oriented plans, pt also does not appear to be psychotic, or anxious, pt was socially appropriate, no behavioral issues, pts insight improved as well and soon pt deemed to be ready for discharge. At the time of the discharge pt denied been depressed, denied thoughts of harming self or others, denied psychotic symptoms, and pt does not appeared to be psychotic, denied been anxious, pt is not in imminent danger to self or others, will be following up at outpatient clinic, information about follow up appointment, time and address provided to the pt, it is patient responsibility to follow up with outpatient clinic, PMD as well as specialists (see note for more detailed information). In case pt will need to obtain results of studies pending at discharge pt was provided with contact information of Psychiatric Inpatient unit [phone] as well as Medical Record Department [phone]. pt denied smoking Counseling about substances and alcohol cessation provided meetings as well as [facility] smoking cessation treatment program information was provided by the pt was provided with prescriptions for all of medications (please see medication reconciliation form) Pt was educated about safety plan in case of worsening of symptoms or in case of suicidal or homicidal ideation call 911 or go to the nearest ER, also was educated to take meds as prescribed and stay away from drugs, pt verbalized understanding. - Diagnosis (1) Bipolar II disorder Current Visit: Yes Status: Chronic Priority: Medium (2) ADD (attention deficit disorder) Current Visit: Yes Status: Chronic Priority: Medium (3) Substance induced mood disorder Current Visit: Yes Status: Acute (4) Cocaine abuse Current Visit: Yes Status: Acute (5) Alcohol abuse Current Visit: Yes Status: Acute - Final Diagnosis (DSM 5) Condition upon Discharge: GOOD DSM 5: At the time of the discharge pt denied been depressed, denied thoughts of harming self or others, denied psychotic symptoms, and pt does not appeared to be psychotic, denied been anxious, pt is not in imminent danger to self or others, will be following up at outpatient clinic, information about follow up appointment, time and address provided to the pt, it is patient responsibility to follow up with outpatient clinic, PMD as well as specialists (see note for more detailed information). In case pt will need to obtain results of studies pending at discharge pt was provided with contact information of Psychiatric Inpatient unit [phone] as well as Medical Record Department [phone]. pt denied smoking Counseling about substances and alcohol cessation provided AA meetings as well as [facility] smoking cessation treatment program information was provided by the pt was provided with prescriptions for all of medications (please see medication reconciliation form) Pt was educated about safety plan in case of worsening of symptoms or in case of suicidal or homicidal ideation call 911 or go to the nearest ER, also was educated to take meds as prescribed and stay away from drugs, pt verbalized understanding. Disposition: HOME/ ROUTINE Follow-up Treatment Plan: * Grp, milieu and supportive tx * Wellbutrin 75 mg PO be BID for symptoms of depression. * Klonopin 0.5 mg AM & HS for symptoms of anxiety and for alcohol withdrawal. * Abilify 5 mg daily to augment Wellbutrin for depression. * Sonata 5 mg HS for insomnia. * Appreciate f/u by Dr. Wong on 01/20/17~signed off * Consider treatment with naltrexone to help with substance dependency, to discuss with patient * Vitals reviewed and noted below: Selected Entries 01/20/17 01/20/17 01/20/17 07:05 09:28 16:00 Temperature 97.8 F Pulse Rate 73 73 101 H Respiratory 18 Rate Blood Pressure 134/83 134/83 144/105 H 01/20/17 01/20/17 16:15 18:02 Temperature Pulse Rate 101 H Respiratory Rate Blood Pressure 144/105 H 121/85 PSYCHIATRIC ADMISSION LABS Laboratory Results - last 24 hr 01/20/17 08:20 WBC 7.2 RBC 5.06 Hgb 15.4 Hct 44.8 MCV 88.5 MCH 30.4 MCHC 34.4 RDW 13.5 Plt Count 181 MPV 11.3 H Gran % 62.9 Lymph % (Auto) 26.1 [place] % (Auto) 7.7 H Eos % (Auto) 3.0 Baso % (Auto) 0.3 Gran # 4.55 Lymph # 1.9 [place] # 0.6 Eos # 0.2 Baso # 0.02 01/20/17 01/20/17 01/20/17 08:20 08:20 08:20 Sodium 141 Potassium 4.2 Chloride 103 Carbon Dioxide 28 Anion Gap 14 BUN 19 Creatinine 1.3 Est GFR (Non-Af Amer) > 60 Random Glucose 109 Fasting Glucose 109 Calcium 9.4 Total Bilirubin 1.2 AST 58 ALT 78 H Alkaline Phosphatase 74 Total Protein 7.4 Albumin 4.3 Globulin 3.0 Albumin/Globulin Ratio 1.4 Triglycerides 215 H Cholesterol 179 LDL Cholesterol Direct 117 HDL Cholesterol 39 Free T4 1.15 TSH 3rd Generation 1.53 RPR Nonreactive At the time of the discharge pt denied been depressed, denied thoughts of harming self or others, denied psychotic symptoms, and pt does not appeared to be psychotic, denied been anxious, pt is not in imminent danger to self or others, will be following up at outpatient clinic, information about follow up appointment, time and address provided to the pt, it is patient responsibility to follow up with outpatient clinic, PMD as well as specialists (see SW note for more detailed information). In case pt will need to obtain results of studies pending at discharge pt was provided with contact information of Psychiatric Inpatient unit [phone] as well as Medical Record Department [phone]. pt denied smoking Counseling about substances and alcohol cessation provided AA meetings as well as [facility] smoking cessation treatment program information was provided by the [facility] pt was provided with prescriptions for all of medications (please see medication reconciliation form) Pt was educated about safety plan in case of worsening of symptoms or in case of suicidal or homicidal ideation call 911 or go to the nearest ER, also was educated to take meds as prescribed and stay away from drugs, pt verbalized understanding. Prescriptions/Medication Reconciliation: ARIPiprazole [Abilify] 10 mg PO DAILY #14 tab Aspirin [Ecotrin] 81 mg PO DAILY #7 tabec Atorvastatin [Lipitor] 20 mg PO DIN #7 tab buPROPion XL [Wellbutrin XL] 300 mg PO DAILY #14 t24 clonazePAM [Klonopin] 0.5 mg PO AMHS #30 tab Folic Acid 1 mg PO DAILY #14 tab hydroCHLOROthiazide [Hydrodiuril] 25 mg PO DAILY #7 tab Lisinopril [Zestril] 20 mg PO DAILY #7 tab Multivitamin Therapeutic Tab [Thera Tab] 1 tab PO DAILY #14 tab Thiamine [Vitamin B1 Tab] 100 mg PO DAILY #14 tab Zaleplon [Sonata] 10 mg PO HS #14 cap - Smoking Cessation Smoking Cessation Medication prescribed: No Reason for not providing: pt denied smoking - Antipsychotic Medications Pt discharged on 2 or more routine antipsychotic medications: No
== END 2017-01-24 16:23 | disposition home or self-care (01) | DRG 430 ==
LOC: PSYC 18:50
PROVIDERS: ADMIT Psychiatry & Neurology Psychiatry; ATTEND Psychiatry & Neurology Psychiatry
DX: F33.2 Major depressive disorder, recurrent severe without psychotic features (principal); F14.14 Cocaine abuse with cocaine-induced mood disorder; F19.14 Other psychoactive substance abuse with psychoactive substance-induced mood disorder; F12.10 Cannabis abuse, uncomplicated; I10 Essential (primary) hypertension; F41.0 Panic disorder [episodic paroxysmal anxiety]; F41.1 Generalized anxiety disorder; E78.5 Hyperlipidemia, unspecified; K21.9 Gastro-esophageal reflux disease without esophagitis; E66.9 Obesity, unspecified; Z68.37 Body mass index [BMI] 37.0-37.9, adult; Z72.89 Other problems related to lifestyle

== ENCOUNTER 2018-05-13 15:05 | Emergency (ER) | payer BC ==
[2018-05-13 15:15] VITALS: RESP 18; TEMP 98.7
[2018-05-13 15:16] VITALS: BMI 34.8
[2018-05-13] MEDS ORDERED: TDAP Vaccine 0.5 mL Syr IM ONE (15:46)
--- NOTE | 2018-05-13 16:06 | ED PDOC ---
Arrival/HPI - General Chief Complaint: Trauma Time Seen by Provider: 05/13/18 15:19 Historian: Patient - History of Present Illness Narrative History of Present Illness (Text): 05/13/18 16:01 42 yo M with past medical history of hypertension,reports sustaining head trauma when he tripped and fell last night, states that when he fell he landed on his left arm, and sustained an abrasion to his left forehead. Admits that he was drinking last night when he fell. However he states that he did not lose consciousness. He is complaining of moderate swelling with bruising to the left upper eyelid, as well as swelling and pain to the left forearm and pain to the left hand. Otherwise: (-) decrease in vision, (-) diplopia, (-) nausea, (-) vomiting, (-) severe headache, (-) other injury, (-) neck/back pain, (-) subjective neurologic deficit, (-) anticoagulants, (-) other injury, (-) other complaints. Has no history of prior significant head injury. Past Medical History - Infectious Disease Hx of Infectious Diseases: None - Tetanus Immunization Tetanus Immunization: Unknown - Cardiac Hx Cardiac Disorders: Yes Hx Hypertension: Yes - Pulmonary Hx Respiratory Disorders: No - Neurological Hx Neurological Disorder: No - HEENT Hx HEENT Disorder: No - Renal Hx Renal Disorder: No - Endocrine/Metabolic Hx Endocrine Disorders: No - Hematological/Oncological Hx Blood Disorders: No - Integumentary Hx Dermatological Disorder: No - Musculoskeletal/Rheumatological Hx Musculoskeletal Disorders: No - Gastrointestinal Hx Gastrointestinal Disorders: Yes (obese) - Genitourinary/Gynecological Hx Genitourinary Disorders: No - Psychiatric Hx Psychophysiologic Disorder: Yes Hx Anxiety: Yes Hx Depression: Yes Hx Substance Use: Yes (Socially) Family/Social History Family/Social History: No Known Family HX Smoking Status: Never Smoked Hx Alcohol Use: Yes Frequency of alcohol use: Socially Hx Substance Use: Yes (Socially) Substance used: Marijuana Allergies/Home Meds Allergies/Adverse Reactions: Allergies No Known Allergies Allergy (Verified 05/13/18 15:16) Home Medications: Home Meds Medication Instructions Recorded Confirmed Escitalopram [Lexapro] 20 mg PO DAILY 05/13/18 05/13/18 Gabapentin [Neurontin] 400 mg PO TID 05/13/18 05/13/18 Review of Systems - Review of Systems Constitutional: absent: Fatigue, Fevers Eyes: absent: Vision Changes, Eye Pain Respiratory: absent: SOB, Cough Cardiovascular: absent: Chest Pain, Palpitations Gastrointestinal: absent: Abdominal Pain, Nausea, Vomiting Musculoskeletal: Arthralgias, Myalgias. absent: Back Pain, Neck Pain Skin: Other (abrasion to the L forehead). absent: Rash, Skin Lesions, Laceration Neurological: absent: Headache, Dizziness Physical Exam - Physical Exam Narrative Physical Exam (Text): 05/13/18 16:04 GENERAL APPEARANCE: Patient is awake, alert, oriented x 3, in no acute distress. SKIN: Warm, dry; (+) abrasion to the left side of the forehead. HEAD: (+) Mild swelling and ecchymosis to the L upper eyelid. No swelling or tenderness and no palpable bony defect. EYES: (-) conjunctival pallor, (-) scleral icterus, (-) nystagmus. ENMT: Mucous membranes moist. (-) Cervantes's sign. TMs: (-) blood. Nose: (-) tenderness, (-) rhinorrhea. No oral trauma. Pharynx clear. Airway patent: (-) stridor. Full ROM of mandible without pain. NECK: (-) tenderness, (-) stiffness, (-) lymphadenopathy. CHEST AND RESPIRATORY: (-) chest wall tenderness. Lungs: (-) rales, (-) rhonchi, (-) wheezes; breath sounds equal bilaterally. HEART AND CARDIOVASCULAR: (-) irregularity; (-) murmur, (-) gallop. ABDOMEN AND GI: Soft; (-) tenderness. BACK: (-) tenderness. EXTREMITIES: (-) deformity, (+) tenderness with mild swelling to the dorsal L forearm, (-) limitation of motion, (+) distal pulses 2+. NEURO AND PSYCH: GCS=15. Mental status as above. 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 EOMI. (-) facial asymmetry. Tongue and uvula midline. Strength 5/5 in all extremities. No gross sensory deficits. DTRs symmetric. Vital Signs Temp Pulse Resp BP Pulse Ox 05/13/18 15:15 98.7 F 111 H 18 150/96 H 95 Medical Decision Making ED Course and Treatment: 05/13/18 16:06 Plan : - CT head - CT orbits, face - XR L forearm - XR L hand - Tdap IM XR L forearm/hand: no fracture, no dislocation, as read by PA On reevaluation, patient remains awake alert and oriented 3 in no acute distress. Repeat neuro exam shows no focal findings. Advised to follow up with primary care physician in 1-2 days without fail. Advised to ice areas of swelling, take tylenol for pain. Return to the emergency room at any time for any new or worsening symptoms. Patient states he fully agrees with and understands discharge instructions. States that he agrees with the plan and disposition. Verbalized and repeated discharge instructions and plan. I have given the patient opportunity to ask any additional questions. - RAD Interpretation Narrative RAD Interpretations (Text): CT of head reviewed by radiologist, shows: Dictated By: Mary Lancaster MD Dictated Date/Time: 05/13/18 16:32 Impression: No evidence of acute intracranial hemorrhage mass effect or midline shift. CT of orbit reviewed by radiologist, shows: Dictated By: Mary Lancaster MD Dictated Date/Time: 05/13/18 16:55 Impression: Moderate left periorbital soft tissue swellin and small subcutaneous hematoma. No evidence of acute fracture. No evidence of retrobulbar hematoma. X-ray of forearm reviewed by radiologist, shows: Dictated By: Satnam Booker MD Dictated Date/Time: 05/13/18 16:40 Impression: Unremarkable radiographs of the left forearm. X-ray of hand reviewed by radiologist, shows: Dictated By: Satnam Booker MD Dictated Date/Time: 05/13/18 17:00 Impression: Normal left hand radiographs. 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 Disposition/Present on Arrival - Present on Arrival Any Indicators Present on Arrival: No History of DVT/PE: No History of Uncontrolled Diabetes: No Urinary Catheter: No History of Decub. Ulcer: No History Surgical Site Infection Following: None - Disposition Have Diagnosis and Disposition been Completed?: Yes Diagnosis: Head trauma, Facial contusion Disposition: HOME/ ROUTINE Disposition Time: 17:15 Patient Plan: Discharge Condition: STABLE Discharge Instructions (ExitCare): Closed Head Injury, Contusion (DC) Additional Instructions: Thank you for letting us take care of you today. You were treated for head trauma, facial contusion. The emergency medical care you received today was directed at your acute symptoms. Apply ice, take tylenol for pain. It may take several days for your symptoms to resolve. Return to the Emergency Department if your symptoms worsen, do not improve, or if you have any other problems. Please contact your doctor in 2 days for re-evaluation and follow up. Bring any paperwork you were given at discharge with you along with any medications you are taking to your follow up visit. Our treatment cannot replace ongoing medical care by a primary care provider (PCP) outside of the emergency department. Thank you for allowing the [facility] team to be part of your care today. If you had an X-Ray or CT scan: A Radiologist will review the ED reading if any change in treatment is needed we will contact you. Referrals: Elizabeth Smith MD [Primary Care Provider] - Follow up with primary Forms: [employer] (French), WORK NOTE
--- NOTE | 2018-05-13 16:35 | CT ---
Date of service: 05/13/2018 PROCEDURE: CT HEAD WITHOUT CONTRAST. HISTORY: trauma COMPARISON: None available. TECHNIQUE: Axial computed tomography images were obtained through the head/brain without intravenous contrast. Radiation dose: Total exam DLP = 922.12 mGy-cm. This CT exam was performed using one or more of the following dose reduction techniques: Automated exposure control, adjustment of the mA and/or kV according to patient size, and/or use of iterative reconstruction technique. FINDINGS: HEMORRHAGE: No intracranial hemorrhage. BRAIN: No mass effect or edema. No atrophy or chronic microvascular ischemic changes. VENTRICLES: Unremarkable. No hydrocephalus. CALVARIUM: Unremarkable. PARANASAL SINUSES: Unremarkable as visualized. No significant inflammatory changes. MASTOID AIR CELLS: Unremarkable as visualized. No inflammatory changes. OTHER FINDINGS: None. IMPRESSION: No evidence of acute intracranial hemorrhage mass effect or midline shift.
--- NOTE | 2018-05-13 16:44 | RAD ---
Date of service: 05/13/2018 PROCEDURE: Radiographs of the Left Forearm HISTORY: trauma COMPARISON: None available. TECHNIQUE: Frontal and lateral views obtained. FINDINGS: BONES: No fracture or destructive lesion. JOINT SPACES: Unremarkable. OTHER FINDINGS: None. IMPRESSION: Unremarkable radiographs of the left forearm.
--- NOTE | 2018-05-13 16:59 | CT ---
Date of service: 05/13/2018 PROCEDURE: CT ORBITS WITHOUT CONTRAST. HISTORY: trauma COMPARISON: None available. TECHNIQUE: Axial CT images of the orbits were obtained. Coronal and sagittal reformats were generated. Radiation dose: Total exam DLP = 907.89 mGy-cm. This CT exam was performed using one or more of the following dose reduction techniques: Automated exposure control, adjustment of the mA and/or kV according to patient size, and/or use of iterative reconstruction technique. FINDINGS: RIGHT ORBIT: RIGHT BONY ORBIT: Normal. RIGHT INTRAORBITAL STRUCTURES: Globe: Normal. Extraocular muscles: Normal. Post septal space: Normal. Optic Nerve: Normal. Lacrimal Apparatus: Normal. RIGHT PRESEPTAL SOFT TISSUES: Normal. LEFT ORBIT: LEFT BONY ORBIT: Moderate left periorbital soft tissue swelling noted. There is a small hematoma lateral to the left orbit in the subcutaneous region. LEFT INTRAORBITAL STRUCTURES: Globe: Normal. Extraocular muscles: Normal. Post septal space: Normal Optic Nerve: Normal. . Lacrimal Apparatus: Normal. LEFT PRESEPTAL SOFT TISSUES: Normal. OTHER: None. IMPRESSION: Moderate left periorbital soft tissue swelling and small subcutaneous hematoma. No evidence of acute fracture. No evidence of retrobulbar hematoma.
--- NOTE | 2018-05-13 17:04 | RAD ---
PROCEDURE: Left Hand Radiographs. HISTORY: trauma COMPARISON: None. FINDINGS: BONES: Normal. No fracture. JOINTS: Normal. No osteoarthritic changes. SOFT TISSUES: Normal. OTHER FINDINGS: None. IMPRESSION: Normal left hand radiographs.
[2018-05-13 17:27] VITALS: BP 138/80; PULSE 88; O2SAT 97
== END 2018-05-13 18:01 | disposition home or self-care (01) ==
LOC: ED 15:05
DX: S00.83XA Contusion of other part of head, initial encounter (principal); W01.0XXA Fall on same level from slipping, tripping and stumbling without subsequent striking against object, initial encounter; I10 Essential (primary) hypertension